=== PATIENT | male | born 1980 | race Caucasian/White ===

== ENCOUNTER 2018-02-11 01:46 | Emergency (ER) | payer BC ==
[~2018-02-11] VITALS: Ht 165.1 cm; Wt 68.0 kg
[2018-02-11] MEDS ORDERED: LOSARTAN POT25 MG PO (02:11)
[2018-02-11] MEDS ORDERED: ALBUTEROL0.63 MG/3 IN (02:13)
[2018-02-11 04:25] VITALS: BP 148/82
== END 2018-02-11 04:25 | disposition home or self-care (01) | DRG 305 ==
LOC: ED 01:46
DX: I10 Essential (primary) hypertension (principal); J44.9 Chronic obstructive pulmonary disease, unspecified; K21.9 Gastro-esophageal reflux disease without esophagitis; F17.210 Nicotine dependence, cigarettes, uncomplicated

== ENCOUNTER 2019-02-06 13:56 | Emergency (ER) | payer BC ==
[~2019-02-06] VITALS: Ht 165.1 cm; Wt 75.0 kg
[~2019-02-06 13:56] MED LIST: ALBUTEROL0.63 MG/3 IN; LOSARTAN POT25 MG PO
[2019-02-06 15:01] LABS: HEMATOCRIT 40.2 % (39.0-50.0); HEMOGLOBIN 14.1 g/dl (14.0-18.0); IMMATURE GRANULOCYTES 0.5 % (0.0-5.0); MEAN CELL VOLUME 99.5 fL CALC (80.0-100.0); MEAN CORPUSCULAR HGB 34.9 pG CALC (26.0-32.0); MEAN CORPUSCULAR HGB CONC 35.1 g/L CALC (32.0-36.0); NEUT# 6.78 thou/uL (1.82-7.42); RED BLOOD COUNT 4.04 mill/uL (4.70-6.10)
[2019-02-06 15:05] LABS: URINE BILIRUBIN - DIPSTICK NEGATIVE (NEGATIVE); URINE BLOOD DIPSTICK NEGATIVE (NEGATIVE); URINE COLOR YELLOW; URINE GLUCOSE - DIPSTICK NEGATIVE (NEGATIVE); URINE KETONE NEGATIVE (NEGATIVE); URINE LEUK ESTERASE NEGATIVE (NEGATIVE); URINE NITRITE - DIPSTICK NEGATIVE (Negative); URINE PH 6.5 (4.5-8.0); URINE PROTEIN - DIPSTICK NEGATIVE (NEG-TRACE); URINE SPECIFIC GRAVITY <=1.005; URINE UROBILINOGEN - DIPSTICK 0.2 E.U./dL (0.2)
[2019-02-06 15:14] LABS: ALKALINE PHOSPHATASE 88 u/l (38-126); ANION GAP 17 (6-22 (CALC)); BILIRUBIN, TOTAL 0.9 mg/dL (0.0-1.4); BUN 17 mg/dL (9-20); BUN/CREATININE RATIO 23 (12-20 (CALC)); CARBON DIOXIDE 28 mmol/l (22-30); CHLORIDE 101 mmol/l (95-108); CREATININE 0.8 mg/dL (0.7-1.3); GFR > 60 ML/MIN (>=60 (CALC)); GFR FOR AFR.AMER. > 60 ML/MIN (>=60 (CALC)); LIPASE 201 u/l (23-300); POTASSIUM 3.6 mmol/l (3.5-5.1); SGOT/AST 36 u/l (17-59); SODIUM 142 mmol/l (137-146); TOTAL PROTEIN 7.9 g/dL (6.3-8.2)
[2019-02-06 15:36] VITALS: BP 146/79
== END 2019-02-06 15:46 | disposition home or self-care (01) | DRG 392 ==
LOC: ED 13:56
PROVIDERS: Family Medicine
DX: K52.9 Noninfective gastroenteritis and colitis, unspecified (principal); I10 Essential (primary) hypertension; J44.9 Chronic obstructive pulmonary disease, unspecified; K21.9 Gastro-esophageal reflux disease without esophagitis; F17.210 Nicotine dependence, cigarettes, uncomplicated; Z87.11 Personal history of peptic ulcer disease

== ENCOUNTER 2019-07-21 07:42 | Inpatient (IN) | payer OTHER ==
[~2019-07-21] VITALS: Ht 165.1 cm; Wt 61.0 kg
--- NOTE | 2019-07-21 08:01 | NUR ---
PATIENT AMBULATED TO ROOM WITH STEADY GAIT AND PHYSICIAN AT BEDSIDE FOR EVAL
--- NOTE | 2019-07-21 08:13 | NUR ---
PT BP 207/98 PT MEDICATED WITH LABETOLOL PER ORDERED. PT AWARE OF PLAN OF CARE AND WAIT TIME.
[2019-07-21 08:20] LABS: IMMATURE GRANULOCYTES 0.3 % (0.0-5.0); MEAN CELL VOLUME 97.3 fL CALC (80.0-100.0); MEAN CORPUSCULAR HGB 33.7 pG CALC (26.0-32.0); MEAN CORPUSCULAR HGB CONC 34.7 g/L CALC (32.0-36.0); NEUT# 8.25 thou/uL (1.82-7.42); RED BLOOD COUNT 4.86 mill/uL (4.70-6.10); RED CELL DISTRI WIDTH 11.6 % (11.5-15.5)
[2019-07-21 08:31] LABS: HEMATOCRIT 47.3 % (39.0-50.0); HEMOGLOBIN 16.4 g/dl (14.0-18.0)
[2019-07-21 08:37] LABS: ALKALINE PHOSPHATASE 92 u/l (38-126); BILIRUBIN, TOTAL 1.2 mg/dL (0.0-1.4); BUN 17 mg/dL (9-20); BUN/CREATININE RATIO 25 (12-20 (CALC)); CHLORIDE 98 mmol/l (95-108); CREATININE 0.7 mg/dL (0.7-1.3); GFR > 60 ML/MIN (>=60 (CALC)); GFR FOR AFR.AMER. > 60 ML/MIN (>=60 (CALC)); SGOT/AST 49 u/l (17-59); SODIUM 136 mmol/l (137-146); TOTAL PROTEIN 8.4 g/dL (6.3-8.2)
[2019-07-21 08:38] LABS: ANION GAP 29 (6-22 (CALC)); CARBON DIOXIDE 14 mmol/l (22-30); POTASSIUM 4.6 mmol/l (3.5-5.1)
[2019-07-21 08:49] LABS: MYOGLOBIN 28 ng/mL (0 - 121)
--- NOTE | 2019-07-21 09:02 | NUR ---
RESTING COMFORTABLY ON BED WITH CONTINUOUS IVF BOLUS. TOLERATING WELL. UPDATED ON NEED FOR URINE FOR TESTING. PT ACKNOWLEDGES. VSS.
--- NOTE | 2019-07-21 09:18 | NUR ---
PT RESTING IN STRETCHER IN NAD. SPO2 99% ON ROOM AIR. IV FLUIDS INFUSING WITH NO DIFFICULTY, SITE FREE FROM REDNESS/EDEMA. PT AWARE OF PENDING RESULTS AND WAIT TIME. CALL MARTIN WITHIN REACH.
[2019-07-21 09:44] LABS: URINE BILIRUBIN - DIPSTICK SMALL (NEGATIVE); URINE BLOOD DIPSTICK SMALL (NEGATIVE); URINE COLOR YELLOW; URINE GLUCOSE - DIPSTICK NEGATIVE (NEGATIVE); URINE KETONE >=80 mg/dL (NEGATIVE); URINE LEUK ESTERASE NEGATIVE (NEGATIVE); URINE NITRITE - DIPSTICK NEGATIVE (Negative); URINE PROTEIN - DIPSTICK 100 mg/dL (NEG-TRACE); URINE SPECIFIC GRAVITY >=1.030
[2019-07-21 09:45] LABS: BARBITURATES NEGATIVE (NEGATIVE); COCAINE NEGATIVE (NEGATIVE); METHADONE NEGATIVE (NEGATIVE); OXCYCODONE NEGATIVE (NEGATIVE); TETRAHYDROCANNABIONOL NEGATIVE (NEGATIVE); TRICYLIC ANTIDEPRESSANTS NEGATIVE (NEGATIVE); URINE EPITHELIAL CELLS FEW EPI/hpf (0-FEW); URINE MUCUS MODERATE hpf (NONE-FEW); URINE RBC 0-2 RBC/hpf (0-5)
--- NOTE | 2019-07-21 10:00 | NUR ---
PT REPORTS PAIN TO MOUTH FOR SEVERAL DAYS WELL. MOUTH, LIPS AND GUMS RED AND IRRITATED.
[2019-07-21] MEDS ORDERED: CLONIDINE0.1 MG PO (10:25)
[2019-07-21] MEDS ORDERED: LIBRIUM25 M1 PO (10:26)
--- NOTE | 2019-07-21 10:30 | NUR ---
PT RESTING IN STRETCHER IN NAD, RR 20. SPO2 99% ON ROOM AIR AT THIS TIME. PT AWARE OF PLAN OF CARE AND WAIT TIME. CALL MARTIN WITHIN REACH.
--- NOTE | 2019-07-21 11:00 | NUR ---
MD AT BEDSIDE TO DISCUSS RESULTS AND PLAN FOR ADMISSION.
--- NOTE | 2019-07-21 12:00 | NUR ---
PT RESTING IN STRETCHER IN NAD. CALL MARTIN WITHIN REACH.
--- NOTE | 2019-07-21 12:59 | NUR ---
REPORT CALLED TO ICU
--- NOTE | 2019-07-21 13:24 | NUR ---
PT AWARE OF PLAN FOR ADMISSION AND WAIT TIME. PT NOSE RUNNING AND HAS A PRODUCTIVE COUGH.
--- NOTE | 2019-07-21 14:00 | NUR ---
Admission Note Report Given to: ICU Transported by: X Wheelchair Stretcher Transported with: X Nurse Transporter X Patent IV O2 Cad Design Engineer Location: X ICU MS2 PT TO ROOM 5 IN STABLE CONDITION.
[2019-07-21 14:04] VITALS: BP 161/92
--- NOTE | 2019-07-21 14:04 | NUR ---
male pt received to ICU bed 5 via wc accompanied by Alexandra Martel RN in stable condition (med surg tele overflow); ambulatory with steady gait; assessment completed at this time; pt alert and oriented; c/c of flu like symptoms starting Mon and sore throat starting yesterday; admits to throat pain; no n/v noted; resp even and unlabored; lungs clear; skin color wnl; ra; hr reg; strong pulses; no edema noted; sr on monitor; abd soft with bs present; no bm noted per sign writer letterer or painter; pt admits to voiding without difficulty; no urine to inspect at this time; urinal placed at bedside; #20 flushed and patent to lac; ivf/ abt to be initiated; plan of care/meds explained; oral cavity/ tongue noted very foul smelling; tongue coated with white substance; fall pre/ no smoking policy explained; pt denies need for librium; pt admits to drinking 1-3 drinks daily (beer or rum); call light within reach; will continue to monitor
--- NOTE | 2019-07-21 14:42 | NUR ---
VALERIA Flores called per quality analyst/technical writer; informed of thrush, htn; orders to be placed
--- NOTE | 2019-07-21 16:07 | NUR ---
awake in bed; offers no complaints; no apparent distress noted; iv intact and patent; no redness or edema noted at site; sr on monitor; call light within reach; will continue to monitor
[2019-07-21 16:30] VITALS: BP 178/86
--- NOTE | 2019-07-21 18:00 | NUR ---
awake in bed; visitors x2 present at bedside; no apparent distress noted iv patent; no redness or edema noted at site; sr on monitor; pt offers no complaints; call light within reach
[2019-07-21 18:15] VITALS: BP 166/81
[2019-07-21 19:30] VITALS: BP 159/93
--- NOTE | 2019-07-21 19:30 | NUR ---
awake. no resp diff. vehicle monitor technician shows sinus rhythm hr 77. #20 lac ns infusing @ 100cchr. refused po intake. voids per urinal. fall precautions cont.
--- NOTE | 2019-07-21 19:40 | NUR ---
lab here. blood drawn.
[2019-07-21 22:00] VITALS: BP 161/65
--- NOTE | 2019-07-22 00:01 | NUR ---
awake. watching tv. said "i am ready to go home." pt reassured.
[2019-07-22 02:25] VITALS: BP 171/85
--- NOTE | 2019-07-22 04:00 | NUR ---
lug breaker and wire puller shows sinus rhythm hr 76.
--- NOTE | 2019-07-22 04:19 | NUR ---
lab here. blood drawn.
[2019-07-22 05:27] LABS: MEAN CELL VOLUME 96.9 fL CALC (80.0-100.0); MEAN CORPUSCULAR HGB 34.2 pG CALC (26.0-32.0); MEAN CORPUSCULAR HGB CONC 35.3 g/L CALC (32.0-36.0); RED BLOOD COUNT 4.18 mill/uL (4.70-6.10); RED CELL DISTRI WIDTH 11.4 % (11.5-15.5)
[2019-07-22 05:32] LABS: HEMATOCRIT 40.5 % (39.0-50.0); HEMOGLOBIN 14.3 g/dl (14.0-18.0)
[2019-07-22 05:45] LABS: BUN 9 mg/dL (9-20); BUN/CREATININE RATIO 18 (12-20 (CALC)); CHLORIDE 97 mmol/l (95-108); CREATININE 0.5 mg/dL (0.7-1.3); GFR > 60 ML/MIN (>=60 (CALC)); GFR FOR AFR.AMER. > 60 ML/MIN (>=60 (CALC)); POTASSIUM 4.3 mmol/l (3.5-5.1); SODIUM 131 mmol/l (137-146)
[2019-07-22 05:46] LABS: ANION GAP 16 (6-22 (CALC)); CARBON DIOXIDE 22 mmol/l (22-30)
--- NOTE | 2019-07-22 06:40 | NUR ---
bp 184/98. hydralazine 10mg ivp given.
--- NOTE | 2019-07-22 07:00 | NUR ---
report called to Schuyler Bruce LPN; pt to be transferred to med surg room 279, TELE
--- NOTE | 2019-07-22 07:19 | NUR ---
pt arrived from icu via wc. with staff.
--- NOTE | 2019-07-22 07:47 | NUR ---
pt is pacing in the room wanting a cig.
[2019-07-22 07:50] VITALS: BP 171/85
--- NOTE | 2019-07-22 09:00 | NUR ---
ASSESSMENT IS COMPLETED: IV SITE IS FREE FROM REDNESS OR EDEMA. HR IS REG,PULSES ARE STRONG X4, ABD IS SOFT WITH ACTIVE BS. BREATH SOUNDS ARE CLEAR, BILATERALLY. NO C/O SOB. CONTINUE TO OBSERVE AND MONITOR.
[2019-07-22 11:20] VITALS: BP 175/84
--- NOTE | 2019-07-22 12:10 | NUR ---
PT IS RELAXING IN BED WITH NO DISTRESS NOTED.IV SITE IS FREE FROM REDNESS OR EDEMA. CONTINUE TO OBSERVE AND MONITOR.
--- NOTE | 2019-07-22 16:00 | NUR ---
pt is relaxing and walking in the room. iv site is free from redness or edema.
[2019-07-22 17:00] VITALS: BP 167/85
--- NOTE | 2019-07-22 19:00 | NUR ---
RECEIVED REPORT FROM DAY NURSE, PATIENT RESTING IN BED, WATCHING TV, EVEN UNLABORED BREATHING CALL LIGHT AT REACH.
[2019-07-22 19:42] VITALS: BP 160/81
--- NOTE | 2019-07-22 20:00 | NUR ---
PATIENT ALERT ORIENTED, ABLE TO MAKE NEEEDS KNONW, WITH AN ONGOING IV OF NS @ 125CC/HR INFUSING WELL ON LAC, REMAINS ON TELE SR 73, STILL HAVE SORETHROAT REFUSED PAIN MEDICATION, PAIN TOLERABLE, CALL LIGHT AT REACH.
[2019-07-22 23:00] VITALS: BP 157/88
[2019-07-23] VITALS (11 sets, daily range): BP systolic 136–194; BP diastolic 71–92
--- NOTE | 2019-07-23 | NUR ---
PATIERNT RESTING IN BED WITH EYES CLOSED, EVEN UNLABORED BREATHING CALL LIGHT AT REACH.
--- NOTE | 2019-07-23 05:00 | NUR ---
BP 194/91, PRN APRESOLINE GIVEN WILL RECHECKED.
--- NOTE | 2019-07-23 07:25 | NUR ---
REPORT RECEIVED FROM NELLI JOSHUA;PT APPEARS TO BE SLEEPING IN SEMI FOWLERS POSITION;NO S/S OF DISTRESS NOTED;RESPIRATIONS EVEN AND UNLABORED ON RA;TELE MONITORING IN PLACE;IV FLUIDS INFUSING WITH EASE PER ORDER;FALL PRECAUTIONS NOTED WITH CALL LIGHT IN REACH;WILL CONTINUE TO MONITOR
--- NOTE | 2019-07-23 08:30 | NUR ---
PT OOB RESTING IN RECLINER,A&O X3;VS OBTAINED AND ASSESSMENT COMPLETED,CURRENT MIRNA 184/87 HR 92 ALL MORNING MEDICATIONS ADMINISTERED AT THIS TIME;PT REPORTS MOUTH PAIN RATING 5/10 ON THE PAIN SCALE AND REQUESTS PAIN MEDICATION.PT TO BE MEDICATED WITH PRN TYLENOL 650MG PO;RESPIRATIONS EVEN AND UNLABORED ON RA;ABDOMEN SOFT ON PALPATION AND ACTIVE IN ALL 4 QUADRANTS;STRONG PEDAL PULSES;SKIN INTACT;TELE MONITORING IN PLACE;#20G TO LAC INFUSING NS @100ML/HR,SITE APPEARS HEALTHY;PY DENIES ANY ADDITIONAL NEEDS AND IS ENCOURAGED TO CALL FOR ASSISTANCE IF NEEDED;FALL PRECAUTIONS IN PLACE WITH CALL LIGHT IN REACH;WILL CONTINUE TO MONITOR
--- NOTE | 2019-07-23 10:12 | NUR ---
BP RE-CHECK 166/92
--- NOTE | 2019-07-23 12:40 | NUR ---
PT RESTING IN RECLINER;RESPIRATIONS EVEN AND UNLABORED ON RA;BP CURRENTLY 172/91 HR 84, PRN APRESOLINE 10MG IVP TO BE ADMINISTERED BY NELLI JACOME;IV FLUIDS INFUSING WITH EASE PER ORDER;TELE MONITORING IN PLACE;PRN LIBRIUM 25MG PO ADMINISTERED AT THIS TIME;PT DENIES ANY ADDITIONAL NEEDS AND IS ENCOURAGED TO CALL FOR ASSISTANCE IF NEEDED;CALL LIGHT IN REACH;WILL CONTINUE TO MONITOR
--- NOTE | 2019-07-23 13:30 | NUR ---
PT TRANSPORTED TO [facility] IN STABLE CONDITION VIA WHEELCHAIR ACCOMPANIED BY VOLUNTEER.
--- NOTE | 2019-07-23 14:43 | NUR ---
AT BEDSIDE DISCUSSING POC.
--- NOTE | 2019-07-23 16:15 | NUR ---
PT RESTING IN RECLINER;RESPIRATIONS EVEN AND UNLABORED ON RA;PT DENIES ANY CURRENT NEEDS AT THIS TIME;TELE MONITORING IN PLACE;IV FLUIDS INFUSING WITH EASE;ASSESSMENT REMAINS UNCHANGED;ENCOURAGED PT TO CALL FOR ASSISTANE IF NEEDED;CALL LIGHT IN REACH;WILL CONTINUE TO MONITOR
--- NOTE | 2019-07-23 19:00 | NUR ---
RECEIVED REPORT FROM NURSE HERNANDEZ PATIENT APPEARS TO BE SLEEPING WITH EYES CLOSED, EVEN UNLABORED BREATHING CALL LIGHT AT REACH.
--- NOTE | 2019-07-23 21:00 | NUR ---
PATIENT AWAKE AT THIS TIME, A/O ABLE TO MAKE NEEDS TANISHA ARTHUR AN ONGOING IV OF NS @ 100CC/HR INFUSING WELL ON LAC, REMAINS ON TELE SR 83, PAIN ON MOUTH SORE STATED 09/24 , WILL MEDICATE FOR PAIN.
[2019-07-24] VITALS (7 sets, daily range): BP systolic 137–176; BP diastolic 59–93
--- NOTE | 2019-07-24 | NUR ---
PATIENT RESTING IN BED, EYES CLOSED WITH EVEN UNLABORED BREATHING CALL LIGHT AT REACH.
--- NOTE | 2019-07-24 04:00 | NUR ---
PATIENT RESTING IN BED WITH EYES CLOSED WITH EVEN UNLABORED BREATHING CALL LIGHT AT REACH.
[2019-07-24 05:20] LABS: HEMATOCRIT 38.2 % (39.0-50.0); HEMOGLOBIN 13.5 g/dl (14.0-18.0); IMMATURE GRANULOCYTES 0.6 % (0.0-5.0); MEAN CELL VOLUME 96.5 fL CALC (80.0-100.0); MEAN CORPUSCULAR HGB 34.1 pG CALC (26.0-32.0); MEAN CORPUSCULAR HGB CONC 35.3 g/L CALC (32.0-36.0); NEUT# 2.52 thou/uL (1.82-7.42); RED BLOOD COUNT 3.96 mill/uL (4.70-6.10); RED CELL DISTRI WIDTH 11.4 % (11.5-15.5)
[2019-07-24 05:27] LABS: ALKALINE PHOSPHATASE 60 u/l (38-126); BILIRUBIN, TOTAL 0.9 mg/dL (0.0-1.4); SGOT/AST 28 u/l (17-59)
[2019-07-24 05:28] LABS: ALBUMIN 3.1 g/dL (3.2-5.0); TOTAL PROTEIN 5.7 g/dL (6.3-8.2)
[2019-07-24 05:31] LABS: ANION GAP 11 (6-22 (CALC)); BUN 5 mg/dL (9-20); BUN/CREATININE RATIO 10 (12-20 (CALC)); CARBON DIOXIDE 24 mmol/l (22-30); CHLORIDE 103 mmol/l (95-108); CREATININE 0.5 mg/dL (0.7-1.3); GFR > 60 ML/MIN (>=60 (CALC)); GFR FOR AFR.AMER. > 60 ML/MIN (>=60 (CALC)); MAGNESIUM 1.6 mg/dL (1.6-2.3); POTASSIUM 3.5 mmol/l (3.5-5.1); SODIUM 135 mmol/l (137-146)
--- NOTE | 2019-07-24 07:20 | NUR ---
REPORT RECEIVED FROM NELLI JOSHUA;PT RESTING IN SEMI FOWLERS POSITION;INTRODUCED SELF TO PT AND POC DISCUSSED;RESPIRATIONS EVEN AND UNLABORED ON RA;PT DENIES ANY CURRENT NEEDS;TELE MONITORING IN PLACE;IV FLUIDS INFUSING WITH EASE;ENCOURAGED TO CALL FOR ASSISTANCE IF NEEDED;FALL PRECAUTIONS IN PLACE WITH CALL LIGHT IN REACH;WILL CONTINUE TO MONITOR
--- NOTE | 2019-07-24 08:55 | NUR ---
PT RESTING IN RECLINER,A&O X3;VS OBTAINED AND ASSESSMENT COMPLETED;PT DENIES ANY CURRENT PAIN,PAIN SCALE AND REPORTING EDUCATED;RESPIRATIONS EVEN AND UNLABORED ON RA,CLEAR LUNG SOUNDS;ABDOMEN SOFT ON PALPATION AND ACTIVE IN ALL 4 QUADRANTS;STRONG PEDAL PULSES;SKIN INTACT;THRUSH NOTED TO MOUTH;#20G TO LAC INFUSING NS @ 100ML/HR,SITE APPEARS HEALTHY BUT DRESSING CHANGED AT THIS TIME;TELE MONITORING IN PLACE;PT DENIES ANY ADDITIONAL NEEDS AND IS ENCOURAGED TO CALL FOR ASSISTANCE IF NEEDED;CALL LIGHT IN REACH;WILL CONTINUE TO MONITOR
--- NOTE | 2019-07-24 11:37 | NUR ---
AT BEDSIDE DISCUSSING POC.
--- NOTE | 2019-07-24 12:20 | NUR ---
PT RESTING IN RECLINER;RESPIRATIONS EVEN AND UNLABORED ON RA;PT DENIES ANY CURRENT NEEDS;IV FLUIDS INFUSING WITH EASE;BP RE-CHECK 162/89 HR 84, PT TO BE MEDICATED WITH PRN APRESOLINE 10MG IVP BY NELLI BROWN;TELE MONITORING IN PLACE;PT DENIES ANY ADDITIONAL NEEDS AND IS ENCOURAGED TO CALL FOR ASSISTANCE IF NEEDED;CALL LIGHT IN REACH;WILL CONTINUE TO MONITOR
--- NOTE | 2019-07-24 13:00 | NUR ---
BP RE-CHECK 137/59 HR 86
--- NOTE | 2019-07-24 15:50 | NUR ---
PT OOB RESTING IN RECLINER;RESPIRATIONS EVEN AND UNLABORED ON RA;PT DENIES ANY CURRENT PAIN OR NEEDS;TELE MONITORING IN PLACE;IV FLUIDS CONTINUE AT 100ML/HR;PT DENIES ANY ADDITIONAL NEEDS AND IS ENCOURAGED TO CALL FOR ASSISTANCE IF NEEDED;CALL LIGHT IN REACH;WILL CONTINUE TO MONITOR
--- NOTE | 2019-07-24 20:11 | NUR ---
ASSESSMENT COMPLETD. IV SITE PATENT AND INFUSING ORDERED IBF WELL. DENIES NEEDS/PAIN. DECLINES LAXATIVE TO ASSIST WITH BM AND DOES HAVE ACTIVE BS. UPDATED ON POC. ENCOURAGED TO CALL FOR ANY NEEDS. INSTRUCTED TO USE URINAL FOR ALL VOIDS. CALL LIGHT IS IN REACH.
--- NOTE | 2019-07-24 21:27 | NUR ---
SCHED MEDS GIVEN ALONG WITH PRN RESTORIL PER ORDER AND REQUEST TO ASSIST WITH SLEEP. DENIES FURTHER NEEDS. CALL LIGHT IS IN REACH.
[2019-07-25] VITALS (8 sets, daily range): BP systolic 132–156; BP diastolic 74–94
--- NOTE | 2019-07-25 00:45 | NUR ---
RESTING IN BED WITH EYES CLOSED; AROUSES EASILY. NO DISTRESS NOTED. CALL LIGHT IS IN REACH. WILL CONTINUE TO MONITOR.
[2019-07-25 04:21] LABS: HEMATOCRIT 35.8 % (39.0-50.0); HEMOGLOBIN 12.6 g/dl (14.0-18.0); MEAN CELL VOLUME 97.3 fL CALC (80.0-100.0); MEAN CORPUSCULAR HGB 34.2 pG CALC (26.0-32.0); MEAN CORPUSCULAR HGB CONC 35.2 g/L CALC (32.0-36.0); RED BLOOD COUNT 3.68 mill/uL (4.70-6.10); RED CELL DISTRI WIDTH 11.4 % (11.5-15.5)
--- NOTE | 2019-07-25 04:25 | NUR ---
medicated with ordered prn apresoline for htn; will reassess. pt. denies needs/pain. call light is in reach.
[2019-07-25 04:51] LABS: ANION GAP 10 (6-22 (CALC)); BUN 7 mg/dL (9-20); BUN/CREATININE RATIO 13 (12-20 (CALC)); CARBON DIOXIDE 24 mmol/l (22-30); CHLORIDE 104 mmol/l (95-108); CREATININE 0.5 mg/dL (0.7-1.3); GFR > 60 ML/MIN (>=60 (CALC)); GFR FOR AFR.AMER. > 60 ML/MIN (>=60 (CALC)); MAGNESIUM 1.5 mg/dL (1.6-2.3); POTASSIUM 3.6 mmol/l (3.5-5.1); SODIUM 135 mmol/l (137-146)
--- NOTE | 2019-07-25 07:20 | NUR ---
REPORT RECEIVED FROM LORIRN;PT OOB RESTING IN RECLINER;INTRODUCED SELF TO PT AND POC DISCUSSED;RESPIRATIONS EVEN AND UNLABORED ON RA;PT DENIES ANY CURRENT PAIN OR NEEDS;TELE MONITORING IN PLACE;IV SITE PATENT INFUSING NS @ 100ML/HR;PT DENIES ANY CURRENT NEEDS AND IS ENCOURAGED TO CALL FOR ASSISTANCE IF NEEDED;CALL LIGHT IN REACH;WILL CONTINUE TO MONITOR
--- NOTE | 2019-07-25 09:25 | NUR ---
PT OOB RESTING IN RECLINER,A&O X3;VS OBTAINED AND ASSESSMENT COMPLETED;PT DENIES ANY CURRENT PAIN OR NEEDS,PAIN SCALE AND REPORTING EDUCATED;RESPIRATIONS EVEN AND UNLABORED ON RA,CLEAR LUNG SOUNDS;ABDOMEN SOFT ON PALPATION AND ACTIVE IN ALL 4 QUADRANTS;MOM OFFERED BUT PT REFUSES AT THIS TIME;STRONG PEDAL PULSES;SKIN INTACT;TELE MONITORING IN PLACE;#22G TO RAC INFUSING NS @ 100ML/HR,SITE APPEARS HEALTHY;NICOTINE PATCH APPLIED TO RIGHT ARM;PT DENIES ANY ADDITIONAL NEEDS AND IS ENCOURAGED TO CALL FOR ASSISTANCE IF NEEDED;CALL LIGHT IN REACH;WILL CONTINUE TO MONITOR
--- NOTE | 2019-07-25 12:15 | NUR ---
PT OOB RESTING IN RECLINER;RESPIRATIONS EVEN AND UNLABORED ON RA;PT DENIES ANY CURRENT PAIN OR NEEDS;TELE MONITORING IN PLACE;IV FLUIDS INFUSING WITH EASE PER ORDER;ASSESSMENT REMAINS UNCHANGED AT THIS TIME;ENCOURAGED TO CALL FOR ASSISTANCE IF NEEDED;CALL LIGHT IN REACH;WILL CONTINUE TO MONITOR
--- NOTE | 2019-07-25 12:45 | NUR ---
AT BEDSIDE DISCUSSING POC WITH PT.
--- NOTE | 2019-07-25 16:05 | NUR ---
PT OOB RESTING IN RECLINER;RESPIRATIONS REMAIN EVEN AND UNLABORED ON RA;PT DENIES ANY CURRENT PAIN OR NEEDS;TELE MONITORING IN PLACE;IV FLUIDS INFUSING WITH EASE PER ORDER;ASSESSMENT REMAINS UNCHANGED;ENCOURAGED TO CALL FOR ASSISTANCE IF NEEDED;CALL LIGHT IN REACH;WILL CONTINUE TO MONITOR
--- NOTE | 2019-07-25 20:56 | NUR ---
PT MEDICATED ORDERS PROVIDE AND ASSESSMENT COMPLETED. IV ANTIBIOITIC THERAPY RUNNING AT THIS TIME. PT DENIES ANY OTHER NEEDS. CALL LIGHT AT BEDSIDE AND PT ENCOURAGED TO CALL.
--- NOTE | 2019-07-26 02:45 | NUR ---
PT SLEEPING, AWOKE TO MY ENTERING ROOM. DENIES ANY NEEDS. NO S/O DISTRESS NOTED.
[2019-07-26 04:02] VITALS: BP 142/91
--- NOTE | 2019-07-26 05:03 | NUR ---
PT MEDICATED W/IV ANTIBIOTIC THERAPY. DENIES ANY OTHER NEEDS. LAB IS JUST LEAVING ROOM.
[2019-07-26 05:22] LABS: HEMATOCRIT 37.5 % (39.0-50.0); MEAN CELL VOLUME 97.4 fL CALC (80.0-100.0); MEAN CORPUSCULAR HGB 33.8 pG CALC (26.0-32.0); MEAN CORPUSCULAR HGB CONC 34.7 g/L CALC (32.0-36.0); RED BLOOD COUNT 3.85 mill/uL (4.70-6.10); RED CELL DISTRI WIDTH 11.6 % (11.5-15.5)
[2019-07-26 05:46] LABS: ANION GAP 10 (6-22 (CALC)); BUN 7 mg/dL (9-20); BUN/CREATININE RATIO 13 (12-20 (CALC)); CARBON DIOXIDE 26 mmol/l (22-30); CHLORIDE 105 mmol/l (95-108); CREATININE 0.5 mg/dL (0.7-1.3); GFR > 60 ML/MIN (>=60 (CALC)); GFR FOR AFR.AMER. > 60 ML/MIN (>=60 (CALC)); POTASSIUM 3.6 mmol/l (3.5-5.1); SODIUM 137 mmol/l (137-146)
[2019-07-26 08:00] VITALS: BP 158/93
[2019-07-26 11:00] VITALS: BP 138/87
[2019-07-26] MEDS ORDERED: HYZAAR1 TA1 PO (12:08)
[2019-07-26] MEDS ORDERED: ALBUTEROL108 MCG/AC PO (12:10)
[2019-07-26] MEDS ORDERED: LIDOCAINE21 PO (12:53)
[2019-07-26] MEDS ORDERED: ACYCLOVIR400 MG PO (12:53)
[2019-07-26] MEDS ORDERED: VALACYCLOVIR HCL1 GM PO (15:01)
== END 2019-07-26 15:30 | disposition home or self-care (01) | DRG 158 ==
LOC: ED 07:42 → ED-I 10:51 → ED 11:14 → ED-I 11:15 → MS2 11:15 → ICU 12:51 → MS2 07-22 07:42
PROVIDERS: Emergency Medicine; Internal Medicine Infectious Disease; Nurse Practitioner Family; ADMIT Internal Medicine; ATTEND Internal Medicine
DX: B00.2 Herpesviral gingivostomatitis and pharyngotonsillitis (principal); E87.2 Acidosis; E87.1 Hypo-osmolality and hyponatremia; F10.239 Alcohol dependence with withdrawal, unspecified; I10 Essential (primary) hypertension; H10.33 Unspecified acute conjunctivitis, bilateral; J44.9 Chronic obstructive pulmonary disease, unspecified; K21.9 Gastro-esophageal reflux disease without esophagitis; F17.210 Nicotine dependence, cigarettes, uncomplicated; F43.10 Post-traumatic stress disorder, unspecified; E55.9 Vitamin D deficiency, unspecified; T46.5X6A Underdosing of other antihypertensive drugs, initial encounter; Z91.128 Patient's intentional underdosing of medication regimen for other reason; Z87.11 Personal history of peptic ulcer disease
CPT/HCPCS: J0133; J1650; J3475

== ENCOUNTER 2020-09-12 20:41 | Emergency (ER) | payer OTHER ==
[~2020-09-12] VITALS: Ht 165.1 cm; Wt 65.0 kg
[~2020-09-12 20:41] MED LIST changes: +ACYCLOVIR400 MG PO; +ALBUTEROL108 MCG/AC PO; +CLONIDINE0.1 MG PO; +HYZAAR1 TA1 PO; +LIBRIUM25 M1 PO; +LIDOCAINE21 PO; +VALACYCLOVIR HCL1 GM PO
[2020-09-12 21:23] LABS: URINE BILIRUBIN - DIPSTICK NEGATIVE (NEGATIVE); URINE BLOOD DIPSTICK NEGATIVE (NEGATIVE); URINE COLOR YELLOW; URINE GLUCOSE - DIPSTICK >=1000 mg/dL (NEGATIVE); URINE KETONE NEGATIVE (NEGATIVE); URINE LEUK ESTERASE NEGATIVE (NEGATIVE); URINE NITRITE - DIPSTICK NEGATIVE (Negative); URINE PROTEIN - DIPSTICK 30 mg/dL (NEG-TRACE); URINE UROBILINOGEN - DIPSTICK 0.2 E.U./dL (0.2)
[2020-09-12 21:34] LABS: ALKALINE PHOSPHATASE 82 u/l (38-126); ANION GAP 18 (6-22 (CALC)); BILIRUBIN, TOTAL 0.7 mg/dL (0.0-1.4); BUN 14 mg/dL (9-20); BUN/CREATININE RATIO 17 (12-20 (CALC)); CARBON DIOXIDE 23 mmol/l (22-30); CHLORIDE 96 mmol/l (95-108); CREATININE 0.8 mg/dL (0.7-1.3); GFR > 60 ML/MIN (>=60 (CALC)); GFR FOR AFR.AMER. > 60 ML/MIN (>=60 (CALC)); POTASSIUM 3.7 mmol/l (3.5-5.1); SGOT/AST 40 u/l (17-59); SODIUM 134 mmol/l (137-146)
[2020-09-12 21:35] LABS: MAGNESIUM 1.4 mg/dL (1.6-2.3); TOTAL PROTEIN 7.7 g/dL (6.3-8.2)
[2020-09-12 21:36] LABS: IMMATURE GRANULOCYTES 0.5 % (0.0-5.0); MEAN CELL VOLUME 96.2 fL CALC (80.0-100.0); MEAN CORPUSCULAR HGB 33.6 pG CALC (26.0-32.0); MEAN CORPUSCULAR HGB CONC 34.9 g/dL CAL (32.0-36.0); NEUT# 9.97 thou/uL (1.82-7.42); RED BLOOD COUNT 4.53 mill/uL (4.70-6.10); RED CELL DISTRI WIDTH 11.6 % (11.5-15.5)
[2020-09-12 21:37] LABS: HEMOGLOBIN 15.2 g/dl (14.0-18.0)
[2020-09-12 21:38] LABS: HEMATOCRIT 43.6 % (39.0-50.0)
[2020-09-12 21:40] LABS: INTERNATIONAL NORMALIZED RATIO 0.9 RATIO (0.7-1.3); PROTHROMBIN TIME 9.6 SECONDS (9.0-12.5)
[2020-09-12 21:46] LABS: MYOGLOBIN 33 ng/mL (0 - 121)
[2020-09-12 22:05] LABS: TSH, 3RD GENERATION 0.65 uIU/mL (0.47 - 4.68)
[2020-09-12] MEDS ORDERED: LOSARTAN POTASS50 MG PO (22:39)
[2020-09-12] MEDS ORDERED: TOPROL XL25 MG PO (22:39)
[2020-09-12] MEDS ORDERED: MECLIZINE25 MG PO (22:39)
[2020-09-12 22:55] VITALS: BP 150/79
== END 2020-09-12 22:55 | disposition home or self-care (01) | DRG 305 ==
LOC: ED 20:41
PROVIDERS: Family Medicine
DX: I10 Essential (primary) hypertension (principal); R42 Dizziness and giddiness; R73.9 Hyperglycemia, unspecified; J44.9 Chronic obstructive pulmonary disease, unspecified; K21.9 Gastro-esophageal reflux disease without esophagitis; F17.200 Nicotine dependence, unspecified, uncomplicated; T46.5X6A Underdosing of other antihypertensive drugs, initial encounter; Z91.128 Patient's intentional underdosing of medication regimen for other reason; Z87.11 Personal history of peptic ulcer disease

== ENCOUNTER 2020-11-11 10:48 | Observation (INO) | payer OTHER ==
[~2020-11-11 10:48] MED LIST changes: +LOSARTAN POTASS50 MG PO; +MECLIZINE25 MG PO; +TOPROL XL25 MG PO
--- NOTE | 2020-11-11 11:47 | NUR ---
PT AMBULATED TO ROOM # 3 WITH STEADY GAIT
[2020-11-11] MEDS ORDERED: LISINOPRIL10 MG PO (12:08)
--- NOTE | 2020-11-11 12:20 | NUR ---
Reassessment of patient completed. No distress noted. CALL MARTIN WITHIN REACH. DENIES ANY NEEDS AT THIS TIME
[2020-11-11 12:31] LABS: HEMATOCRIT 43.7 % (39.0-50.0); HEMOGLOBIN 14.9 g/dl (14.0-18.0); IMMATURE GRANULOCYTES 0.5 % (0.0-5.0); MEAN CORPUSCULAR HGB 34.1 pG CALC (26.0-32.0); MEAN CORPUSCULAR HGB CONC 34.1 g/dL CAL (32.0-36.0); NEUT# 8.85 thou/uL (1.82-7.42); RED BLOOD COUNT 4.37 mill/uL (4.70-6.10); RED CELL DISTRI WIDTH 12.6 % (11.5-15.5)
[2020-11-11] MEDS ORDERED: LOSARTAN POTASS25 MG PO (12:42)
[2020-11-11] MEDS ORDERED: LOPRESSOR25 M1 PO (12:42)
--- NOTE | 2020-11-11 12:46 | NUR ---
PATEINT RESTING AWAITNG LAB RESULTS AT THIS TIME.
[2020-11-11 12:50] LABS: ALBUMIN 5.9 g/dL (3.2-5.0); ALKALINE PHOSPHATASE 122 u/l (38-126); BUN 23 mg/dL (9-20); BUN/CREATININE RATIO 26 (12-20 (CALC)); CHLORIDE 86 mmol/l (95-108); CREATININE 0.9 mg/dL (0.7-1.3); GFR > 60 ML/MIN (>=60 (CALC)); GFR FOR AFR.AMER. > 60 ML/MIN (>=60 (CALC)); LIPASE 1676 u/l (23-300); SODIUM 129 mmol/l (137-146); TOTAL PROTEIN 9.2 g/dL (6.3-8.2)
[2020-11-11 12:51] LABS: ANION GAP 20 (6-22 (CALC)); BILIRUBIN, TOTAL 1.8 mg/dL (0.0-1.4); CARBON DIOXIDE 28 mmol/l (22-30); POTASSIUM 4.8 mmol/l (3.5-5.1); SGOT/AST 277 u/l (17-59)
--- NOTE | 2020-11-11 13:04 | NUR ---
PT AMBULATED TO BATHROOM WITH STEADY GAIT. NO VOMITING SINCE ARRIVAL IN ER
--- NOTE | 2020-11-11 13:42 | NUR ---
ALERT ORIENTED WARM BLANKET APPLIED
--- NOTE | 2020-11-11 14:19 | NUR ---
PATIENT RESTING QUIETLY,CALL MARTIN IN REACH. NO DISTRESS AT THIS TIME.
--- NOTE | 2020-11-11 15:00 | NUR ---
DR OLVERA AT BEDSIDE DISCUSSING POC
--- NOTE | 2020-11-11 16:13 | NUR ---
patient resting quietly. Awaiting admission.
--- NOTE | 2020-11-11 16:42 | NUR ---
report called to MARIELA reiciving nurse on med surg.
--- NOTE | 2020-11-11 16:50 | NUR ---
PT ARRIVED VIA WC IN STABLE CONDITION TO MED SURG FLOOR ACCOMPANIED BY ED NURSE ERIN;PT AMBULATED TO BED WITH NO ASSISTANCE NEEDED;ARM BANDS PLACED ON PT;VS AND ASSESSMENT COMPLETED;PT ORIENTED TO ROOM AND CALL MARTIN SYSTEM;HOME MEDICATIONS OBTAINED FROM PT TO BE SENT TO PHARMACY;INVENTORY TAKEN OF PT BELONGINGS;NPO SIGN PLACED ON DOOR;HEART SOUNDS ARE REGULAR IN RATE AND RHYTHM;LUNG SOUNDS ARE CLEAR;RESPIRATIONS ARE EVEN AND UNLABORED ON RA;#20G IV IN RAC IS RUNNING NS@150ML/HR;IV SITE IS FREE OF COMPLICATIONS AT THIS TIME;SAFETY PRECAUTIONS IN PLACE;CALL LIGHT WITHIN REACH;WILL CONTINUE TO MONITOR.
--- NOTE | 2020-11-11 16:51 | NUR ---
transferred via wc to room 267. stable upon arrival, iv intact
[2020-11-11 17:26] VITALS: BP 151/66
[2020-11-11 19:00] VITALS: BP 142/83
--- NOTE | 2020-11-11 19:00 | NUR ---
REPORT RECEIVED FROM Paty VALERIO RN, CARE OF PT ASSUMED AT THIS TIME.
--- NOTE | 2020-11-11 20:05 | NUR ---
PT LAYING SEMIFOWLERS IN BED. PHYSICAL ASSESMENT COMPLETE. PT DENIES ABD PAIN OR N/V, DENIES DIARHEA OR CONSTIPATION. LAST REPORTED BM 11/11/20. PT REPORT HE FEELS READY TO ADVANCE TO ORAL INTAKE. PT PROVIDED WITH ICE CHIPS TO ASSESS IF HE CAN TOLERATE THEM. PRN LIBRIUM ADMINISTERED PER PT'S REQUEST, SEE E-MAR. CIWA SCORE OF 2 FOR MILD ANXIETY AND MILD VISUAL SENSITIVITY TO LIGHT. REPORTS LAST ETOH INTAKE 11/08/20. PT APPEARS CALM AND COOPERATIVE. PLAN OF CARE REVIEW, PT APPEARS ENGAGED. DENIES QUESTIONS AND VERBALIZES UNDERSTANDING. R-AC 20G IV PATENT AND INFUSING NS @ 150ML/H. PT DENIES NEEDS AT THIS TIME. CALL MARTIN WITHIN REACH, AGREES TO CALL PRN.
--- NOTE | 2020-11-11 21:00 | NUR ---
PT TOLERATING SIPS OF H2O AND ICE CHIPS W/O N/V OR PAIN. WILL ENDORSE TO AM NURSE AND SUGGEST DIET BE ADVANCED BY PROVIDER.
--- NOTE | 2020-11-12 00:05 | NUR ---
PT APPEARS TO BE SLEEPING COMFORTABLY, LAYING IN BED WITH EYES CLOSED, RESPIRATIONS REGULAR AND UNLABORED. NO APPARENT DISTRESS. CALL MARTIN REMAINS WITHIN REACH.
[2020-11-12 04:00] VITALS: BP 150/89
--- NOTE | 2020-11-12 04:00 | NUR ---
PT REPORTS TO BE USING CHEWING TOBACCO, ADVISED PT THIS IS UNSAFE WITH NICOTINE PATCH ON AND HE SHOULD NOT BE CONSUMING MULTIPLE NICOTINE PRODUCTS. PT VERBALIZES UNDERSTANDING.
[2020-11-12 05:54] LABS: ALKALINE PHOSPHATASE 80 u/l (38-126); BILIRUBIN, TOTAL 1.2 mg/dL (0.0-1.4); BUN 20 mg/dL (9-20); BUN/CREATININE RATIO 26 (12-20 (CALC)); CHLORIDE 94 mmol/l (95-108); CREATININE 0.8 mg/dL (0.7-1.3); GFR > 60 ML/MIN (>=60 (CALC)); GFR FOR AFR.AMER. > 60 ML/MIN (>=60 (CALC)); LIPASE 1184 u/l (23-300); SGOT/AST 157 u/l (17-59); SODIUM 129 mmol/l (137-146)
[2020-11-12 05:57] LABS: POTASSIUM 4.1 mmol/l (3.5-5.1)
[2020-11-12 05:58] LABS: IMMATURE GRANULOCYTES 0.4 % (0.0-5.0); MEAN CELL VOLUME 100.6 fL CALC (80.0-100.0); MEAN CORPUSCULAR HGB 33.8 pG CALC (26.0-32.0); MEAN CORPUSCULAR HGB CONC 33.6 g/dL CAL (32.0-36.0); NEUT# 4.39 thou/uL (1.82-7.42); RED BLOOD COUNT 3.52 mill/uL (4.70-6.10); RED CELL DISTRI WIDTH 12.6 % (11.5-15.5)
[2020-11-12 06:04] LABS: ALBUMIN 4.2 g/dL (3.2-5.0); ANION GAP 17 (6-22 (CALC)); CARBON DIOXIDE 22 mmol/l (22-30); TOTAL PROTEIN 6.6 g/dL (6.3-8.2)
--- NOTE | 2020-11-12 06:19 | NUR ---
PT REPORTS HE FEELS READY TO ADVANCE TO PO INTAKE AND READY TO BE DISCHARGED, WILL INFORM ONCOMING SHIFT. PT ENCOURAGED TO VERBALIZE REQUESTS TO PROVIDER THIS AM.
[2020-11-12 06:30] LABS: HEMATOCRIT 35.4 % (39.0-50.0); HEMOGLOBIN 11.9 g/dl (14.0-18.0)
[2020-11-12 07:15] VITALS: BP 146/86
--- NOTE | 2020-11-12 07:48 | NUR ---
UPON GOING INTO ROOM TO ASSESS PATIENT PATIENT STATED THAT HE WANTED TO SIGN OUT AMA AT THIS TIME. PATIENT STATED HE HAS A LOT OF PERSONAL THINGS TO DO AT HOME AND NEEDS TO LEAVE NOW. PATIENT STATED "I'M GOING TO CONTINUE DRINKING WHEN I WANT BECAUSE I LIKE IT, JESSICA MARTINS APRN NOTIFIED A THIS TIME PATINET GIVEN EDUCATION ON ALCOHOL ABUSE AND EXPLAINED RISK AND BENEFITS OF LEAVING.
== END 2020-11-12 07:55 | disposition left against medical advice (07) | DRG 439 ==
LOC: ED 10:48 → ED-I 14:53 → ED 15:05 → MS2 15:06
PROVIDERS: Family Medicine; Nurse Practitioner; ADMIT Internal Medicine; ATTEND Internal Medicine
DX: K85.20 Alcohol induced acute pancreatitis without necrosis or infection (principal); E87.1 Hypo-osmolality and hyponatremia; R74.8 Abnormal levels of other serum enzymes; F10.10 Alcohol abuse, uncomplicated; I10 Essential (primary) hypertension; J44.9 Chronic obstructive pulmonary disease, unspecified; K21.9 Gastro-esophageal reflux disease without esophagitis; F17.200 Nicotine dependence, unspecified, uncomplicated; Z87.11 Personal history of peptic ulcer disease; Z20.822 Contact with and (suspected) exposure to COVID-19
CPT/HCPCS: G0378; Q9967

== ENCOUNTER 2020-12-08 13:35 | Inpatient (IN) | payer OTHER ==
[~2020-12-08] VITALS: Ht 165.1 cm; Wt 71.0 kg
[~2020-12-08 13:35] MED LIST changes: +LISINOPRIL10 MG PO; +LOPRESSOR25 M1 PO; +LOSARTAN POTASS25 MG PO
--- NOTE | 2020-12-08 14:13 | NUR ---
PT TO ER 15 VIA WHEELCHAIR FOR BEDSIDE TRIAGE. ASSISTED INTO BED WITH ONE PERSON ASSIST.
[2020-12-08 15:14] LABS: IMMATURE GRANULOCYTES 0.8 % (0.0-5.0); MEAN CELL VOLUME 102.6 fL CALC (80.0-100.0); MEAN CORPUSCULAR HGB 35.2 pG CALC (26.0-32.0); MEAN CORPUSCULAR HGB CONC 34.3 g/dL CAL (32.0-36.0); NEUT# 7.15 thou/uL (1.82-7.42); RED BLOOD COUNT 3.41 mill/uL (4.70-6.10)
[2020-12-08 15:27] LABS: ALKALINE PHOSPHATASE 120 u/l (38-126); BUN 18 mg/dL (9-20); BUN/CREATININE RATIO 22 (12-20 (CALC)); CHLORIDE 83 mmol/l (95-108); CREATININE 0.8 mg/dL (0.7-1.3); GFR > 60 ML/MIN (>=60 (CALC)); GFR FOR AFR.AMER. > 60 ML/MIN (>=60 (CALC)); POTASSIUM 4.7 mmol/l (3.5-5.1); SODIUM 127 mmol/l (137-146)
[2020-12-08 15:33] LABS: ALBUMIN 5.7 g/dL (3.2-5.0); ANION GAP 35 (6-22 (CALC)); BILIRUBIN, TOTAL 2.1 mg/dL (0.0-1.4); CARBON DIOXIDE 14 mmol/l (22-30); SGOT/AST 362 u/l (17-59); TOTAL PROTEIN 9.3 g/dL (6.3-8.2)
[2020-12-08 17:33] LABS: URINE BLOOD DIPSTICK LARGE (NEGATIVE); URINE GLUCOSE - DIPSTICK NEGATIVE (NEGATIVE); URINE KETONE >=80 mg/dL (NEGATIVE); URINE LEUK ESTERASE NEGATIVE (Negative); URINE NITRITE - DIPSTICK NEGATIVE (Negative); URINE PROTEIN - DIPSTICK >=300 mg/dL (NEG-TRACE); URINE SPECIFIC GRAVITY >=1.030; URINE UROBILINOGEN - DIPSTICK 0.2 E.U./dL (0.2)
[2020-12-08 17:37] LABS: URINE BILIRUBIN - DIPSTICK NEGATIVE (NEGATIVE); URINE CLARITY HAZY; URINE COLOR AMBER
[2020-12-08 17:44] LABS: URINE WBC 0-2 WBC/hpf (0-5)
[2020-12-08 17:53] LABS: CPK 261 u/l (52-200)
[2020-12-08 18:03] LABS: MYOGLOBIN 82 ng/mL (0 - 121)
--- NOTE | 2020-12-08 19:03 | NUR ---
REPORT TO VANDANA AIKEN
--- NOTE | 2020-12-08 19:04 | NUR ---
REPORT TO VANDANA AIKEN
--- NOTE | 2020-12-08 19:15 | NUR ---
ICU 7 ASSIGNED TO PT AT THIS TIME TO Yusef JOYCE IN ED.
--- NOTE | 2020-12-08 20:10 | NUR ---
TELEPHONE REPORT RECEIVED FROM Vernon BAR RN, ICU#7 PREPARED FOR PT BY Charly WANG CNA.
--- NOTE | 2020-12-08 20:13 | NUR ---
REPORT GIVEN TO NELLI PATRICIA IN ICU
[2020-12-08 20:33] VITALS: BP 175/76
--- NOTE | 2020-12-08 20:33 | NUR ---
PT ARRIVES TO UNIT AT 2032 VIA STRETCHER ACCOMPANIED BY Vernon BAR RN, PT ABLE TO SLIDE SELF FROM STRETCHER TO BED. ATTATCHED TO MONITOR. ORIENTED TO UNIT AND ROOM. PLAN OF CARE REVIEWED, PT VERBALIZES UNDERSTANDING. CALL MARTIN WITHIN REACH, AGREES TO CALL PRN.
--- NOTE | 2020-12-08 20:45 | NUR ---
ADMISSION AND ASSESMENT COMPLETED. PT IS A/O X3, WHEN ASKED DATE GETS MONTH CORRECT BUT STATES IT IS THE 2ND. LEFT PERIORBITAL ECCHYMOSIS AND LEFT EYE SWOLLEN SHUT. DENIES PAIN. AFFECT IS FLAT. REPORTS NO ETOH X3 DAYS. REPORTS PRIOR HE DRANK "A HANDLE OF LIQUOR" A DAY FOR SEVERAL MONTHS, STATES HE WALKED OUT OF WORK "WASTED" SIX WEEKS AGO AND "IT'S PRETTY MUCH BEEN A BAL EVER SINCE", WHEN ASKED WHY HE STOPPED CONSUMING ETOH THREE DAYS AGO STATES "BECAUSE ITS JUST TAKING OVER MY LIFE". PT ADMITS TO FEELING DEPRESSED, DENIES THOUGHT OR PLANS OF SELF HARM. PRIOR TO MEDICAL INTERVENTION IN ED, REPORTS N/V, TREMORS, PAROXYSMAL SWEATS AND ANXIETY. CIWA SCORE OF 8 AT TIME OF ASSESMENT, REPORTS DATE IS November AND REPORTS SEEING A "WOMAN IN WHITE" STANDING IN ROOM WITH HIM. PT REPORTS HE HAS BEEN UNABLE TO EAT FOR 3-4 DAYS AND HAS NOT HAD BM FOR 3-4 DAYS. FOOD PROVIDED PER PT'S REQUEST. PT TOLERATES FOOD PROVIDED. L-AC #20G PATENT AND INFUSING 0.9% NACL @ 100ML/H. PLAN OF CARE REVIEWED, PT VERBALIZES UNDERSTANDING. DENIES FURTHER NEEDS AT THIS TIME. CALL MARTIN WITHIN REACH AGREES TO CALL PRN.
[2020-12-08 21:00] VITALS: BP 153/83
--- NOTE | 2020-12-08 21:01 | NUR ---
SCHEDULED MEDICATION ADMINISTERED, SEE EMAR.
[2020-12-08 22:00] VITALS: BP 148/83
[2020-12-08 23:00] VITALS: BP 157/89
--- NOTE | 2020-12-08 23:45 | NUR ---
PRN HYDRALZINE ADMINISTERED FOR NIBP 157/89mmHg, PRN ATIVAN ADMINISITERED FOR CIWA SCORE 0F 8. SEE E-MAR.
[2020-12-09] VITALS (22 sets, daily range): BP systolic 136–165; BP diastolic 67–92
--- NOTE | 2020-12-09 02:00 | NUR ---
PT APPEARS TO BE SLEEPING COMFORTABLY, EYES CLOSED, SNORING, RESPIRATIONS UNLABORED, NO APPARENT DISTRESS. CALL MARTIN REMAINS WITHIN REACH.
--- NOTE | 2020-12-09 04:00 | NUR ---
PT APPEARS TO BE SLEEPING COMFORTABLY, EYES CLOSED, SNORING, RESPIRATIONS UNLABORED, NO APPARENT DISTRESS. CALL MARTIN REMAINS WITHIN REACH.
--- NOTE | 2020-12-09 05:41 | NUR ---
LABS COLLECTED VIA VENIPUNCTURE X1 ATTMEPT.
[2020-12-09 07:04] LABS: IMMATURE GRANULOCYTES 0.4 % (0.0-5.0); MEAN CELL VOLUME 99.6 fL CALC (80.0-100.0); MEAN CORPUSCULAR HGB 35.4 pG CALC (26.0-32.0); MEAN CORPUSCULAR HGB CONC 35.5 g/dL CAL (32.0-36.0); NEUT# 2.89 thou/uL (1.82-7.42); RED BLOOD COUNT 2.74 mill/uL (4.70-6.10); RED CELL DISTRI WIDTH 12.9 % (11.5-15.5)
[2020-12-09 07:05] LABS: HEMATOCRIT 27.3 % (39.0-50.0); HEMOGLOBIN 9.7 g/dl (14.0-18.0)
--- NOTE | 2020-12-09 07:22 | NUR ---
RECIEVED PATIENT FROM NIGHT NURSE
[2020-12-09 07:32] LABS: ALKALINE PHOSPHATASE 83 u/l (38-126); BUN 11 mg/dL (9-20); BUN/CREATININE RATIO 18 (12-20 (CALC)); CREATININE 0.6 mg/dL (0.7-1.3); GFR > 60 ML/MIN (>=60 (CALC)); GFR FOR AFR.AMER. > 60 ML/MIN (>=60 (CALC)); POTASSIUM 3.8 mmol/l (3.5-5.1); SGOT/AST 179 u/l (17-59); SODIUM 128 mmol/l (137-146)
[2020-12-09 07:34] LABS: ANION GAP 14 (6-22 (CALC)); CARBON DIOXIDE 24 mmol/l (22-30); CHLORIDE 94 mmol/l (95-108); TOTAL PROTEIN 6.4 g/dL (6.3-8.2)
--- NOTE | 2020-12-09 08:00 | NUR ---
PATIENT WOKE UP ALLOWED ME TO ASSES HIM, TOLD HIM HIS MEAL TRAY WILL BE COMING UP SOON. PATIENT WENT BACK TO SLEEP.
--- NOTE | 2020-12-09 10:00 | NUR ---
PATIENT WATCHING TV
--- NOTE | 2020-12-09 12:00 | NUR ---
PATIENT RESTING IN BED.
--- NOTE | 2020-12-09 14:00 | NUR ---
PATIENT WASHING HIMSELF UP.
--- NOTE | 2020-12-09 16:00 | NUR ---
PATIENT RESTING IN BED
--- NOTE | 2020-12-09 18:00 | NUR ---
PATIENT IS SITTING UP IN BED WATCHING TV. DINNER TRAY INFRONT OF HIM
--- NOTE | 2020-12-09 18:32 | NUR ---
PATIENT COMPLAINED OF NAUSEA, DR. MCCULLOUGH GAVE NEW ORDERS FROM [facility] SAXENA. ORDER IS FAXED TO [facility].
--- NOTE | 2020-12-09 19:00 | NUR ---
RECEIVED REPORT. PT AWAKE. ALERT. ATE VERY LITTLE DINNER BUT DRANK FLUIDS. BANANA BAG INFUSING RX IN RIGHT A/C (IV). C/O NAUSEA AND OF BEING BORED. DENIES JITTERY OR NERVOUS FEELINGS
--- NOTE | 2020-12-09 19:17 | NUR ---
ZOFRAN GIVEN RX-BEDRESTING
--- NOTE | 2020-12-09 20:20 | NUR ---
ZPFRAN EFFECTIVE. NO FURTHER NAUSEA
--- NOTE | 2020-12-09 22:06 | NUR ---
C/O H/A AND REQUESTED OTC MEDICATION. TYLENOL X 2 GIVEN PER REQUEST. LIGHTS OUT AND TV OFF
[2020-12-10] VITALS (12 sets, daily range): BP systolic 117–167; BP diastolic 64–86
--- NOTE | 2020-12-10 | NUR ---
BEDRESTING. DENIES H/A OR DISTRESS AT THIS TIME.
--- NOTE | 2020-12-10 01:38 | NUR ---
LIGHTS OUT. TV OFF. NS INFUSING TX-USING URINAL PRN. N/C VOIVED. BEHAVIOR APPROPRIATE THIS SHIFT
--- NOTE | 2020-12-10 03:30 | NUR ---
BEDRESTING. UP AD ABELARDO TO URINATE. NO DISTRESS NOTED
--- NOTE | 2020-12-10 05:21 | NUR ---
BEDRESTING. RESP EVEN AND NONLABORED. N/C AT THIS TIME
[2020-12-10 05:37] LABS: HEMATOCRIT 25.2 % (39.0-50.0); HEMOGLOBIN 8.8 g/dl (14.0-18.0); MEAN CELL VOLUME 100.8 fL CALC (80.0-100.0); MEAN CORPUSCULAR HGB 35.2 pG CALC (26.0-32.0); MEAN CORPUSCULAR HGB CONC 34.9 g/dL CAL (32.0-36.0); RED BLOOD COUNT 2.5 mill/uL (4.70-6.10); RED CELL DISTRI WIDTH 12.7 % (11.5-15.5)
[2020-12-10 05:45] LABS: ALBUMIN 3.6 g/dL (3.2-5.0); ALKALINE PHOSPHATASE 76 u/l (38-126); ANION GAP 13 (6-22 (CALC)); BILIRUBIN, TOTAL 0.7 mg/dL (0.0-1.4); BUN 11 mg/dL (9-20); BUN/CREATININE RATIO 18 (12-20 (CALC)); CARBON DIOXIDE 23 mmol/l (22-30); CHLORIDE 95 mmol/l (95-108); CREATININE 0.6 mg/dL (0.7-1.3); GFR > 60 ML/MIN (>=60 (CALC)); GFR FOR AFR.AMER. > 60 ML/MIN (>=60 (CALC)); POTASSIUM 3.3 mmol/l (3.5-5.1); SGOT/AST 172 u/l (17-59); SODIUM 128 mmol/l (137-146); TOTAL PROTEIN 5.8 g/dL (6.3-8.2)
--- NOTE | 2020-12-10 06:05 | NUR ---
PT REQUESTED FOR IV FLUIDS TO BE STOPPED "ALL I DO IS PISS". STATES HE IS DRINKING PO FLUIDS AND DOES NOT THINK HE NEEDS THE IV FLUIDS. AGREE TO HAVE THE IV MEDICATION "LITTLE BAGS ARE OK... JUST NO MORE BIG BAGS"
--- NOTE | 2020-12-10 07:18 | NUR ---
PT REPORT RECEIVED FROM [employer] AUDITOR. PT ALERT/ORIENTED X3, DENIES ANY COMPLAINTS AT THIS TIME, STATES LEFT EYE IS OPENING BETTER, NO SIGHT PROBLEMS, REMAINS WITH BRUISING TO SAUL EYES AND LEFT SIDE OF FOREHEAD FROM FALL WHILE DRINKING HE STATES. STATES DRINKS ALOT OF HARD ALCOHOL EVERY DAY FOR YEARS.
--- NOTE | 2020-12-10 09:06 | NUR ---
DR. GAMEZ AT BEDSIDE
--- NOTE | 2020-12-10 10:37 | NUR ---
RECIEVED REPORT FROM NELLI CEVALLOS
--- NOTE | 2020-12-10 10:38 | NUR ---
PT REPORT CALLED TO CHAPARRITA ON MED SURG, PT TO BE SENT TO ROOM 279 PER W/C
--- NOTE | 2020-12-10 10:50 | NUR ---
PT ARRIVED TO [facility] ROOM 279 VIA WHEELCHAIR IN STABLE CONDITION ACCOMPAINED BY NELLI GARRIDO. PT IS A/O X3. ASSESSMENT AND VITALS COMPLETED. BP 128/83, HR 73, O2 100% ON ROOM AIR. REPSIRATIONS ARE EVEN AND UNLABORED WITH NO DISTRESS. LUNG SOUNDS CLEAR. HEART RHYTHM NORMAL. BOWEL SOUNDS ARE ACTIVE. RADIAL AND PEDAL PULSES ARE STRONG. #20G IN RAC AND #22G IN LH FLUSHED, SITE APPEARS HEALTHY AND PATENT. SKIN INTACT. BRUISING NOTED AROUND BILATERAL EYES. HEMATOMA NOTED TO LEFT FOREHEAD. PT COMPLAINS OF 4/10 HEADACHE, PT TO BE MEDICATED PER EMAR. PT DENIES OF ANY OTHER NEEDS. ALL SAFETY PRECAUTIONS ARE IN PLACE. WILL CONTINUE TO MONITOR.
--- NOTE | 2020-12-10 10:51 | NUR ---
PT TAKEN TO MED SURG PER W/C, REMAINS ALERT/ORIENTED X3, SMILING, ALL BELONGINGS FROM ER SENT WITH PT TO MED SURG
--- NOTE | 2020-12-10 11:40 | NUR ---
TYLENOL ADMINISTERED FOR HEAD ACHE
--- NOTE | 2020-12-10 16:34 | NUR ---
PT SITTING UP IN RECYLINER WATCHING TC. RESPIRATIONS ARE EVEN AND UNLABORED WITH NO DITRESS. #20G IN RFA REMOVED WITH CATHATER STILL INTACT. #22G IN RW REMAINS IN PLACE, SITE APPEARS HEALTHY AND PATENT. PT DENIES OF ANY PAINS AT THIS TIME. ALL SAFETY PRECAUTIONS ARE IN PLACE WITH CALL LIGHT IN REACH. WILL CONTINUE TO MONITOR.
--- NOTE | 2020-12-10 20:58 | NUR ---
PT SITTING UP IN CHAIR AT START OF SHIFT. NOTED THAT IV SITE TO R WRIST WAS DISLODGED AND HE CATHETER WAS HANGING OUT OF THE VEIN UNDER THE DRESSING. SITE TO R WRIST D/C'D. NEW SITE STARTED TO RAC #20 X 1 ATTEMPT. NO COMPICATIONS NOTED. PT TOLERATED WELL. SAFETY PRECAUTIONS IN PLACE, BED IN LOWEST POSITION, CALL LIGHT WITHIN REACH. WILL MONITOR
--- NOTE | 2020-12-11 00:55 | NUR ---
PT RESTING QUIETLY AT THIS TIME. NO COMPLAINTS VOICED. BREATHING EVEN AND UNLABORED. CIWA ASSESSMENT COMPLETED. DENIES PAIN. SAFETY PRECAUTIONS IN PLACE, CALL LIGHT WITHIN REACH
[2020-12-11 04:00] VITALS: BP 130/77
--- NOTE | 2020-12-11 04:26 | NUR ---
PT CONTINUES TO REST QUIETLY IN BED WITH HIS EYES CLOSED. NO COMPLAINT VOICED. DENIES PAIN. SAFETY PRECAUTIONS IN PLACE. WILL CONTINUE TO MONITOR
[2020-12-11 05:55] LABS: HEMATOCRIT 24.4 % (39.0-50.0); HEMOGLOBIN 8.5 g/dl (14.0-18.0); MEAN CELL VOLUME 99.6 fL CALC (80.0-100.0); MEAN CORPUSCULAR HGB 34.7 pG CALC (26.0-32.0); MEAN CORPUSCULAR HGB CONC 34.8 g/dL CAL (32.0-36.0); RED BLOOD COUNT 2.45 mill/uL (4.70-6.10); RED CELL DISTRI WIDTH 12.4 % (11.5-15.5)
[2020-12-11 06:24] LABS: ANION GAP 10 (6-22 (CALC)); BUN 11 mg/dL (9-20); BUN/CREATININE RATIO 21 (12-20 (CALC)); CHLORIDE 94 mmol/l (95-108); CREATININE 0.5 mg/dL (0.7-1.3); GFR > 60 ML/MIN (>=60 (CALC)); GFR FOR AFR.AMER. > 60 ML/MIN (>=60 (CALC)); MAGNESIUM 1.1 mg/dL (1.6-2.3); SODIUM 129 mmol/l (137-146)
[2020-12-11 06:47] LABS: CARBON DIOXIDE 28 mmol/l (22-30)
--- NOTE | 2020-12-11 07:00 | NUR ---
RECIEVED REPORT FROM TREVOR MULLER.
[2020-12-11 08:01] VITALS: BP 139/85
--- NOTE | 2020-12-11 08:01 | NUR ---
PT RESTING IN SEMI FOWLERS POSITION. PT IS A/OX3. ASSESSMENT AND VITALS COMPLETED. BP 139/85, HR 90, O2 100% ON ROOM AIR. RESPIRATIONS ARE EVEN AND UNLABORED WITH NO DISRTESS. LUNG SOUNDS ARE CLEAR. HEART RHYTHM IS NORMAL. BOWEL SOUNDS ARE ACTIVE. #20G RAC FLUSHED, SITE REMAINS HEALTHY AND PATENT. LEFT FOREHEAD HEMATOMA AND BRUISING AROUND EYES NOTED. SKIN INTACT. PT DENIES OF ANY PAINS OR DISCOMFORTS AT THIS TIME. ALL SAFETY PRECAUTIONS ARE IN PLACE WITH CALL LIGHT IN REACH. INSTRUCTED PT TO CALL FOR ASSISTANCE. WILL CONTINUE TO MONITOR.
[2020-12-11 08:46] VITALS: BP 139/85
--- NOTE | 2020-12-11 10:49 | NUR ---
DR GAMEZ AT BEDSIDE
--- NOTE | 2020-12-11 11:27 | NUR ---
PT AT BEDSIDE
[2020-12-11] MEDS ORDERED: CIPROFLOXACN500 MG PO (11:35)
[2020-12-11] MEDS ORDERED: PANTOPRAZOLE SO40 M1 PO (11:35)
[2020-12-11] MEDS ORDERED: METRONIDAZOL500 MG PO (11:36)
[2020-12-11] MEDS ORDERED: LIBRIUM25 M1 PO (11:36)
[2020-12-11] MEDS ORDERED: LOSARTAN POTASS25 MG PO (11:37)
[2020-12-11] MEDS ORDERED: LOPRESSOR25 M1 PO (11:37)
--- NOTE | 2020-12-11 12:15 | NUR ---
PT SITTING UP IN RECYLINER. RESPIRATIONS ARE EVEN AND UNLAORED WITH NO DISRTESS NOTED. #20G IN RAC INFUSING WITH IV MAG, SITE APPEARS HEALTHY AND PATENT. PT INFORMED OF DC AFTER ADMINSTRATION OF MAG. PT STATES THAT HE DOES NOT HAVE A RIDE FOR TODAY. OFFERED TO OBTAIN TAXI. PT ACCEPT. ALL SAFETY PRECAUTIONS ARE IN PLACE WITH CALL LIGHT IN REACH. WILL CONTINUE TO MONITOR.
--- NOTE | 2020-12-11 13:12 | NUR ---
PT WORRIED THAT [facility] WAS ABLE TO FILL PRESCRIPTIONS TODAY. [facility] CALLED VIA THIS CROSS ROLLER. CROSS ROLLER INFORMED THAT MEDICATIONS COULD BE FILLED TODAY. PHARMACY CLOSES AT 9 PM. PT INFORMED. VERBALIZED UNDERSTANDING.
--- NOTE | 2020-12-11 14:52 | NUR ---
PT EDUCATED ON DC INSTRUCTIONS AND NEW MEDATIONS THAT WERE SENT TO [facility].PT VERBLAIZED UNDERSTANDING. #20G IN RAC REMOVED WITH ATHATER STILL INTACT.TAXI TO BE CALLED. ALL SAFETY PRECAUTIONS ARE IN PLACE WITH CALL LIGHT IN REACH. WILL CONTINUE TO MONITOR.
--- NOTE | 2020-12-11 14:57 | NUR ---
[facility] CALLED. TAXI TO ARRIVE IN 10 MIN.
--- NOTE | 2020-12-11 15:15 | NUR ---
Discharge instructions given. Patient verbalizes understanding of same. Discharged in stable condition via Wheelchair to Home with staff. All belongings sent with pt. PT DC HOME IN STABLE CONDITION VIA TAXI IN STABLE CONDITION WITH ALL BELONGINGS AND CD INSTRUCTIONS.
== END 2020-12-11 15:07 | disposition home or self-care (01) | DRG 897 ==
LOC: ED 13:35 → ED-I 18:50 → ED 19:12 → ICU 19:13 → MS2 12-09 19:23 → ICU 12-09 20:52 → MS2 12-10 10:49
PROVIDERS: Family Medicine; Nurse Practitioner; Nurse Practitioner Family; ADMIT Internal Medicine; ATTEND Internal Medicine
DX: F10.10 Alcohol abuse, uncomplicated (principal); E87.1 Hypo-osmolality and hyponatremia; E87.2 Acidosis; K50.10 Crohn's disease of large intestine without complications; E86.0 Dehydration; K70.10 Alcoholic hepatitis without ascites; K29.80 Duodenitis without bleeding; D63.8 Anemia in other chronic diseases classified elsewhere; D69.59 Other secondary thrombocytopenia; S00.12XA Contusion of left eyelid and periocular area, initial encounter; S00.11XA Contusion of right eyelid and periocular area, initial encounter; S80.02XA Contusion of left knee, initial encounter; S80.01XA Contusion of right knee, initial encounter; S50.02XA Contusion of left elbow, initial encounter; S50.01XA Contusion of right elbow, initial encounter; I10 Essential (primary) hypertension; J44.9 Chronic obstructive pulmonary disease, unspecified; K21.9 Gastro-esophageal reflux disease without esophagitis; F17.210 Nicotine dependence, cigarettes, uncomplicated; F43.10 Post-traumatic stress disorder, unspecified; W18.30XA Fall on same level, unspecified, initial encounter; Y92.009 Unspecified place in unspecified non-institutional (private) residence as the place of occurrence of the external cause; Z87.11 Personal history of peptic ulcer disease; Z20.822 Contact with and (suspected) exposure to COVID-19
CPT/HCPCS: J1650; J2060; J3475

== ENCOUNTER 2021-01-03 07:09 | Inpatient (IN) | payer OTHER ==
[~2021-01-03] VITALS: Ht 165.1 cm; Wt 72.0 kg
[~2021-01-03 07:09] MED LIST changes: +CIPROFLOXACN500 MG PO; +METRONIDAZOL500 MG PO; +PANTOPRAZOLE SO40 M1 PO
--- NOTE | 2021-01-03 07:10 | NUR ---
TO ROOM VIA WHEELCHAIR IN STABLE CONDITION
[2021-01-03 08:05] LABS: HEMATOCRIT 25.9 % (39.0-50.0); HEMOGLOBIN 8.5 g/dl (14.0-18.0); IMMATURE GRANULOCYTES 0.4 % (0.0-5.0); MEAN CORPUSCULAR HGB 34.7 pG CALC (26.0-32.0); MEAN CORPUSCULAR HGB CONC 32.8 g/dL CAL (32.0-36.0); NEUT# 3.63 thou/uL (1.82-7.42); RED BLOOD COUNT 2.45 mill/uL (4.70-6.10); RED CELL DISTRI WIDTH 14.4 % (11.5-15.5)
[2021-01-03 08:08] LABS: MEAN CELL VOLUME 105.7 fL CALC (80.0-100.0)
--- NOTE | 2021-01-03 08:10 | NUR ---
RESTING ON STRETCHER. CALL MARTIN WITHIN REACH
[2021-01-03 08:21] LABS: ALBUMIN 4.7 g/dL (3.2-5.0); BILIRUBIN, TOTAL 1.4 mg/dL (0.0-1.4); CREATININE 2.7 mg/dL (0.7-1.3); MAGNESIUM 1.2 mg/dL (1.6-2.3); POTASSIUM 4.7 mmol/l (3.5-5.1); TOTAL PROTEIN 7.8 g/dL (6.3-8.2)
--- NOTE | 2021-01-03 09:10 | NUR ---
RESTING ON STRETCHER. CALL MARTIN WITHIN REACH. IVF INFUSING WITHOUT DIFFICULTY.
[2021-01-03 09:19] LABS: URINE BILIRUBIN - DIPSTICK MODERATE (NEGATIVE); URINE BLOOD DIPSTICK MODERATE (NEGATIVE); URINE COLOR YELLOW; URINE GLUCOSE - DIPSTICK NEGATIVE (NEGATIVE); URINE KETONE 40 mg/dL (NEGATIVE); URINE LEUK ESTERASE NEGATIVE (NEGATIVE); URINE PH 5.5 (4.5-8.0); URINE PROTEIN - DIPSTICK 100 mg/dL (NEG-TRACE); URINE SPECIFIC GRAVITY 1.025; URINE UROBILINOGEN - DIPSTICK 0.2 E.U./dL (0.2)
[2021-01-03 09:20] LABS: URINE NITRITE - DIPSTICK NEGATIVE (Negative)
[2021-01-03 09:28] LABS: URINE WBC 0-2 WBC/hpf (0-5)
--- NOTE | 2021-01-03 10:09 | NUR ---
REPORT CALLED TO PT TO BE TRANSFERRED WITH RN TO ICU
--- NOTE | 2021-01-03 10:10 | NUR ---
RECIEVED REPORT FROM ER NURSE SUYAPA.
--- NOTE | 2021-01-03 10:45 | NUR ---
PATIENT BROUGHT UP TO THE FLOOR. SETTLED IN BED.
--- NOTE | 2021-01-03 11:20 | NUR ---
PATIENT ASSESSED. ADMISSION IS COMPLETED. PATIENT HAS LEFT FACE BRUISE. STATED THAT IT IS A WEEK OLD. HE FELL DOWN AT HOME AND GOT "BEAT UP". LUNGS ARE CLEAR. A/O X3. SCORED A 1 ON THE CIWA. HYPOACTIVE BOWLSOUNDS. NO EDEMA PRESENT AT THIS TIME. STATED THAT HE IS WEAK WHEN HE WALKS BECAUSE "i DONT USE MY MUSCLES ANYMORE SO I JUST FALL ALL THE TIME". FALL PRECAUTIONS IN PLACED. EDUCATION WAS PROVIDED ABOUT IT, STATED THAT HE WILL ALWAYS CALL WHEN HE NEEDS HELP. NO PAIN OR DISCOMFORT AT THIS TIME. HE COMPLAINS OF BEING NPO PER DOCTORS ORDERS. EXPLAINED TO HIM THE REASONING HE STATED HE JUST DOESN'T UNDERSTAND WHY HE CAN'T HAVE JUST ONE MEAL. SAFETY MEASURES IN PLACE. CALL LIGHT IN REACH. WILL CONTINUE TO MONITOR.
[2021-01-03 11:30] VITALS: BP 123/67
[2021-01-03 12:00] VITALS: BP 128/67
--- NOTE | 2021-01-03 13:30 | NUR ---
PATIENT HAS A VISITOR WITH HIM. STATED THAT IT WAS HIS BEST FRIEND.
[2021-01-03 14:00] VITALS: BP 110/64
[2021-01-03 16:00] VITALS: BP 109/63
--- NOTE | 2021-01-03 16:14 | NUR ---
PATIENT IS RESTING IN BED.
--- NOTE | 2021-01-03 18:15 | NUR ---
PATIENT STATED "THANK YOU, IM HAPPY I GET TO EAT SOME FOOD".
[2021-01-03 19:05] VITALS: BP 102/53
--- NOTE | 2021-01-03 19:05 | NUR ---
awakens easily. c/o gen weakness. no active bleeding. thread grinder tool shows sinus rhythm hr 81. #22 rfa 1/2ns infusing @ 150cchr. no po intake or void @ present. bruising on lt side of body conts. says he fell 1 wk ago. fall precautions cont.
[2021-01-03 22:00] VITALS: BP 111/62
--- NOTE | 2021-01-03 22:00 | NUR ---
eyes closed. no distress. cardiac/vascular sonographer shows sionus rhythm hr 90.
[2021-01-04] VITALS (11 sets, daily range): BP systolic 104–123; BP diastolic 60–76
--- NOTE | 2021-01-04 00:01 | NUR ---
eyes closed. no distress. ivf infusing well.
--- NOTE | 2021-01-04 02:20 | NUR ---
voided per urinal. alarm security or surveillance monitor shows sinus tach hr 140-150.
--- NOTE | 2021-01-04 04:00 | NUR ---
resting quietly. resps een & unlabored. no apparent distress.
--- NOTE | 2021-01-04 04:34 | NUR ---
lab here. blood drawn.
[2021-01-04 05:32] LABS: BILIRUBIN, TOTAL 1.2 mg/dL (0.0-1.4); POTASSIUM 3.8 mmol/l (3.5-5.1)
[2021-01-04 05:33] LABS: ALBUMIN 3.2 g/dL (3.2-5.0); CREATININE 1.6 mg/dL (0.7-1.3); HEMATOCRIT 20.8 % (39.0-50.0); IMMATURE GRANULOCYTES 0.9 % (0.0-5.0); MEAN CORPUSCULAR HGB CONC 33.7 g/dL CAL (32.0-36.0); NEUT# 1.19 thou/uL (1.82-7.42); RED CELL DISTRI WIDTH 13.8 % (11.5-15.5); TOTAL PROTEIN 5.5 g/dL (6.3-8.2)
--- NOTE | 2021-01-04 06:00 | NUR ---
awakens easily. denies tremors. toll collector supervisor shows sinus rhythm hr 73.
--- NOTE | 2021-01-04 06:59 | NUR ---
PATIENT RECIEVED FROM [facility]TA NURSE LISE.
--- NOTE | 2021-01-04 07:50 | NUR ---
PATIENT ASSESSED. A/O X3. ABLE TO MAKE NEEDS KNOWN. STATES HE IS HAVING NO PAIN AT THIS TIME. SCORED A 0 ON CIWA AT THIS TIME. CLEAR LUNG SOUNDS THROUGHOUT. NORMAL HEART SOUNDS, SR ON MONITOR. DID GO UP TO 110-120 THIS AM WHEN TRANSFERRING TO CHAIR AT BEDSIDE. PATIENT STATED HE WASN'T DIZZY OR FEELING NAUSEA. ACTIVE BOWEL SOUNDS. NO EDEMA PRESENT. WEAK GAIT WHEN WALKING TO THE CHAIR. EATING BREAKFAST AT THIS TIME. STRIPPED THE BED TO CHANGE HIS LINENS. OFFERED A BEDBATH AFTER HE EATS, STATED THAT HE DOESN'T WANT IT TILL HE FEELING STRONGER. INFORMED HIM IM HERE TILL 7PM, ANYTIME BEFORE THEN IF HE CHANGES HIS MIND, ILL GLADLY HELP. SAFETY MEASURES IN PLACE. CALL LIGHT IN REACH. WILL CONTINUE TO MONITOR.
--- NOTE | 2021-01-04 10:57 | NUR ---
HUNG UP BANANA BAG. PLACED NEW BED SHEETS IN ROOM.
--- NOTE | 2021-01-04 13:00 | NUR ---
PATIENT REQUESTED TO GO BACK IN BED STATED THAT THE CHAIR IS VERY UNCOMFORTABLE.
--- NOTE | 2021-01-04 14:34 | NUR ---
PATIENT WATCHING TV IN BED. GAVE HIM ANOTHER BLANKET
--- NOTE | 2021-01-04 16:15 | NUR ---
PATIENT RESTING IN BED
--- NOTE | 2021-01-04 18:02 | NUR ---
PATIENT IS SITTING UP IN CHAIR EATING DINNER WATCHING TV
--- NOTE | 2021-01-04 19:15 | NUR ---
awake. denies distress. appears to feel better tonite. no active bleeding. hall monitor shows sinus rhythm hr 76. #22 rfa banana bag infusing @ 100cchr. po fluids taken well. voids per urinal. fall precautions cont.
--- NOTE | 2021-01-04 22:00 | NUR ---
eyes closed. no distress. linen supervisor shows sinus rhythm hr 90.
[2021-01-05] VITALS (15 sets, daily range): BP systolic 99–132; BP diastolic 62–88
--- NOTE | 2021-01-05 00:01 | NUR ---
eyes closed. no distress. ivf infusing well.
--- NOTE | 2021-01-05 02:00 | NUR ---
resting quietly. resps even & unlabored. no apparent distress.
--- NOTE | 2021-01-05 04:00 | NUR ---
eyes closed. desk monitor shows sinus rhythm hr 70.
--- NOTE | 2021-01-05 05:00 | NUR ---
lab here. blood drawn.
[2021-01-05 05:56] LABS: ALBUMIN 2.9 g/dL (3.2-5.0); ALKALINE PHOSPHATASE 105 u/l (38-126); ANION GAP 10 (6-22 (CALC)); BILIRUBIN, TOTAL 1.2 mg/dL (0.0-1.4); BUN 15 mg/dL (9-20); BUN/CREATININE RATIO 13 (12-20 (CALC)); CARBON DIOXIDE 27 mmol/l (22-30); CHLORIDE 98 mmol/l (95-108); CREATININE 1.2 mg/dL (0.7-1.3); GFR > 60 ML/MIN (>=60 (CALC)); GFR FOR AFR.AMER. > 60 ML/MIN (>=60 (CALC)); POTASSIUM 3.5 mmol/l (3.5-5.1); SGOT/AST 417 u/l (17-59); SODIUM 132 mmol/l (137-146); TOTAL PROTEIN 5.3 g/dL (6.3-8.2)
--- NOTE | 2021-01-05 05:58 | NUR ---
awake. watching tv. denies tremors.
[2021-01-05 06:07] LABS: RED BLOOD COUNT 1.8 mill/uL (4.70-6.10)
[2021-01-05 06:08] LABS: HEMOGLOBIN 6.4 g/dl (14.0-18.0); IMMATURE GRANULOCYTES 0.5 % (0.0-5.0); MEAN CELL VOLUME 102.8 fL CALC (80.0-100.0); MEAN CORPUSCULAR HGB 35.6 pG CALC (26.0-32.0); MEAN CORPUSCULAR HGB CONC 34.6 g/dL CAL (32.0-36.0); NEUT# 0.91 thou/uL (1.82-7.42); RED CELL DISTRI WIDTH 13.6 % (11.5-15.5)
[2021-01-05 06:09] LABS: HEMATOCRIT 18.5 % (39.0-50.0)
[2021-01-05 10:12] LABS: PROTHROMBIN TIME 9.8 SECONDS (9.0-12.5)
--- NOTE | 2021-01-05 10:38 | NUR ---
PT ALERT AND ORIENTED X 3. LUNGS CLEAR, RA. PT DOES NOT EXHIBIT ANY SYMPTOMS OF ALCOHOL WITHDRAWAL, I.E., NO SHAKING, NO CONFUSION, NO HALLUCINATIONS. PT SEEN BY DR GAMEZ THIS MORNING, NEW ORDERS BEING CARRIED OUT. PT RECEIVES UNIT OF PRBCs AT THIS TIME WITHOUT ADVERSE EFFECT. PT SEEN BY PHYSICAL THERAPIST. PT HOPES TO CHECK IN TO REHAB CENTER UPON DISCHARGE.
--- NOTE | 2021-01-05 12:41 | NUR ---
BLOOD TRANSFUSION CONTINUES WITHOUT ADVERSE REACTION. PT WITHOUT EVIDENCE OF WITHDRAWAL SYMPTOMS FROM ALCOHOL.
--- NOTE | 2021-01-05 14:38 | NUR ---
BLOOD TRANSFUSION X 2 UNITS PRBCs HAVE COMPLETED WITHOUT EVENT. PT UP AT BEDSIDE TO USE URINAL. PHYSICAL THERAPY HAS WORKED WITH PT TODAY. NO DISTRESS, NO WITHDRAWAL SYMPTOMS.
--- NOTE | 2021-01-05 18:15 | NUR ---
PT CONTINUES IN STABLE CONDITION BEFORE, NO DISTRESS, NO COMPLAINTS.
--- NOTE | 2021-01-05 21:13 | NUR ---
bedresting. resp even and nonlabored. no distress noted
--- NOTE | 2021-01-05 22:00 | NUR ---
bedresting. took hs librium-tolerated well. states he feels fine. no distress noted. no s/s tremors
[2021-01-06] VITALS (9 sets, daily range): BP systolic 113–131; BP diastolic 71–91
--- NOTE | 2021-01-06 00:06 | NUR ---
BEDRESTING. RESP EVEN AND NONLABORED. N/C VOICED
--- NOTE | 2021-01-06 02:00 | NUR ---
BEDRESTING. RESP EVEN AND NONLABORED. NO DISTRESS NOTED
--- NOTE | 2021-01-06 02:15 | NUR ---
BEDRESTING. CPAP IN USE. 0200 PAIN MEDICATION GIVEN RX. DOZING AT INTERVALS
--- NOTE | 2021-01-06 04:09 | NUR ---
bedresting. napping. n/c. iv is hl at this time
[2021-01-06 04:36] LABS: MEAN CORPUSCULAR HGB 32.1 pG CALC (26.0-32.0); MEAN CORPUSCULAR HGB CONC 34.5 g/dL CAL (32.0-36.0); RED BLOOD COUNT 3.05 mill/uL (4.70-6.10); RED CELL DISTRI WIDTH 17.9 % (11.5-15.5)
[2021-01-06 04:39] LABS: HEMATOCRIT 28.4 % (39.0-50.0); HEMOGLOBIN 9.8 g/dl (14.0-18.0); MEAN CELL VOLUME 93.1 fL CALC (80.0-100.0)
[2021-01-06 04:57] LABS: ANION GAP 9 (6-22 (CALC)); BUN 11 mg/dL (9-20); BUN/CREATININE RATIO 9 (12-20 (CALC)); CARBON DIOXIDE 25 mmol/l (22-30); CHLORIDE 104 mmol/l (95-108); CREATININE 1.2 mg/dL (0.7-1.3); GFR > 60 ML/MIN (>=60 (CALC)); GFR FOR AFR.AMER. > 60 ML/MIN (>=60 (CALC)); POTASSIUM 3.5 mmol/l (3.5-5.1); SODIUM 135 mmol/l (137-146)
[2021-01-06 05:03] LABS: MAGNESIUM 1.6 mg/dL (1.6-2.3)
--- NOTE | 2021-01-06 05:48 | NUR ---
LAB RESULTS HAVE RETURNED-IMPROVED FROM YESTERDAY. PT COOPERATIVE, BUT VERY QUIET. HE ONLY ANSWERS/RESPONDS WHEN SPOKEN TO. ONLY TOOK SIPS OF FLUIDS WITH MEDICATION. REMAINS IN BED. LIGHTS AND TV OFF.BOTH IV SITES ARE HL AT THIS TIME
--- NOTE | 2021-01-06 07:36 | NUR ---
PT SEEN AWAKE, ALERT, ORIENTED X 3. LUNGS CLEAR, RA. PT UPDATED ON IMPROVED LABS, STATES THAT HE STILL FEELS WEAK.
--- NOTE | 2021-01-06 10:08 | NUR ---
PT PROVIDED MILK OF MAGNESIA THIS MORNING PER NO BM FOR AT LEAST 3 DAYS, CURRENTLY ASSISTED TO BSC WITH RESULTS.
--- NOTE | 2021-01-06 15:23 | NUR ---
PT WAS TAKEN TO ROOM 260 FOR A SHOWER. PT DID WELL, BEARING HIS WEIGHT WITH STANDBY ASSIST. UPON RETURNING TO ROOM, PT SPOKE WITH HEAVY MOBILE EQUIPMENT REPAIRER CEASAR REGARDING PLAN OF CARE, WAS SEEN BY PHYSICAL THERAPIST AMOR, AND HAD A VISIT FROM HIS FRIEND WILL.
--- NOTE | 2021-01-06 16:07 | NUR ---
PT note: Patient continues to be profoundly weak. His Am Pac score is unchanged. He worked on supine to sit and sit to stand transfers. His transitionalmovements are very slow. He is able to stand with Mod assist of 1 and FWW but does demonstrate tremulous respnse to weight baering. He is able to perform some toe and and heel raises and mini squats but is completely exhousted after about 5 reps only. I encouraged him to independently perform supine to sit but to avoid attempts at standing without assist at this time as he is a great fall risk. Our plan is to continue gentle strengthening checking his pH level and progressing functional activities accordingly
--- NOTE | 2021-01-06 19:15 | NUR ---
REPORT GIVEN BY JEREMY. PATIENT RESTING IN BED. RESP EVEN AND UNLABORED. NO S/S OF DISTRESS NOTED. JHON GERARD PRECAUTIONS IN PLACE. IV SALINE LOCKED. PLAN OF CARE DISCUSSED. PATIENT INFORMED TO CALL WITH ANY QUESTIONS OR CONCERNS.
--- NOTE | 2021-01-06 22:01 | NUR ---
PM MEDICATIONS GIVEN PER MD ORDERS. PATIENT USED BSC, HAD A MODERATED SIZED BM
[2021-01-07] VITALS (12 sets, daily range): BP systolic 92–138; BP diastolic 52–86
--- NOTE | 2021-01-07 00:59 | NUR ---
patient resting with eyes closed. resp even and unlabored. no s/s of distress noted. fall and saftey precautions in place.
--- NOTE | 2021-01-07 04:00 | NUR ---
PATIENT RESTING WITH EYES CLOSED. RESP EVEN AND UNLABORED. NO S/S OF DISTRESS NOTED. FALL AND SAFTEY PRECAUTIONS IN PLACE.
[2021-01-07 06:19] LABS: HEMATOCRIT 27.2 % (39.0-50.0); HEMOGLOBIN 9.3 g/dl (14.0-18.0); MEAN CELL VOLUME 95.8 fL CALC (80.0-100.0); MEAN CORPUSCULAR HGB 32.7 pG CALC (26.0-32.0); MEAN CORPUSCULAR HGB CONC 34.2 g/dL CAL (32.0-36.0); RED BLOOD COUNT 2.84 mill/uL (4.70-6.10); RED CELL DISTRI WIDTH 18.1 % (11.5-15.5)
[2021-01-07 06:32] LABS: ALBUMIN 2.7 g/dL (3.2-5.0); ALKALINE PHOSPHATASE 116 u/l (38-126); ANION GAP 9 (6-22 (CALC)); BUN 14 mg/dL (9-20); BUN/CREATININE RATIO 13 (12-20 (CALC)); CARBON DIOXIDE 27 mmol/l (22-30); CHLORIDE 104 mmol/l (95-108); CREATININE 1.1 mg/dL (0.7-1.3); GFR > 60 ML/MIN (>=60 (CALC)); GFR FOR AFR.AMER. > 60 ML/MIN (>=60 (CALC)); POTASSIUM 3.5 mmol/l (3.5-5.1); SGOT/AST 310 u/l (17-59); SODIUM 137 mmol/l (137-146)
[2021-01-07 06:37] LABS: BILIRUBIN, TOTAL 0.7 mg/dL (0.0-1.4)
--- NOTE | 2021-01-07 07:55 | NUR ---
PT SITTING ON THE SIDE OF THE BED. A&O X4. FLAT AFFECT NOTED. CLEAR BREATH SOUNDS UPON AUSCULTATION. ACTIVE BOWEL SOUNDS X4 QUADRANTS. PT DENIES ANY N&V, CIWA SCORE OF 0 GIVEN AT THIS TIME. IVS HEALTHY AND PATENT. CURRENTLY SR ON MONITOR. PT REPORTS WEAKNESS. WALKER AT BEDSIDE, PHYSICAL THERAPY TO CONTINUE. ASSESSMENT COMPLETED. DISCUSSED POC. CALL LIGHT WITHIN REACH.
--- NOTE | 2021-01-07 08:50 | NUR ---
DR ONEILL AT BEDSIDE DISCUSSING POC
--- NOTE | 2021-01-07 10:00 | NUR ---
PT SITTING IN BED. NO DISTRESS NOTED. CALL LIGHT WITHIN REACH.
--- NOTE | 2021-01-07 12:00 | NUR ---
PT SITTING ON THE SIDE OF THE BED EATING LUNCH. NO DISTRESS NOTED. CALL LIGHT WITHIN REACH.
--- NOTE | 2021-01-07 14:00 | NUR ---
PT SLEEPING IN BED. NO DISTRESS NOTED. CALL LIGHT WITHIN REACH.
--- NOTE | 2021-01-07 16:00 | NUR ---
PT SLEEPING IN BED. NO DISTRESS NOTED. CALL LIGHT WITHIN REACH.
--- NOTE | 2021-01-07 16:30 | NUR ---
PHYSICAL THERAPY AT BEDSIDE
--- NOTE | 2021-01-07 18:00 | NUR ---
PT IN BED WATCHING TV. NO DISTRESS NOTED. CALL LIGHT WITHIN REACH.
--- NOTE | 2021-01-07 19:00 | NUR ---
REPORT GIVEN BY ROCK. PATIENT RESTING IN BED. ALERT AND ORIENTED. PATIENT STATES HE STILL FEELS WEAK. FALL AND SAFTEY PRECAUTIONS IN PLACE. USING URINAL AT BEDSIDE. IV INFUSING BANANA BAG. RESP EVEN AND UNLABORED. NO S/S OF DISTRESS NOTED. PLAN OF CARE DISCUSSED. PATIENT INFORMED TO CALL WITH ANY QUESTIONS OR CONCERNS.
--- NOTE | 2021-01-07 20:15 | NUR ---
PT note Patient is seen for transfer training and closed chain strengthening. He was able to stand with CGA of 1. He performed 2 sets of 5 mini squats and 2 sets of 5 long stepping with FWW, He is able to march in place x 30 seconds before muscle fatigue prevented further intervention He is improving with his function and our plan is to contiue strengthening and functional training with return to gait
--- NOTE | 2021-01-07 22:11 | NUR ---
PM MEDICATION GIVEN PER MD ORDERS
[2021-01-08] VITALS (13 sets, daily range): BP systolic 88–133; BP diastolic 54–86
--- NOTE | 2021-01-08 00:39 | NUR ---
PATIENT RESTING WITH EYES CLOSED. RESP EVEN AND UNLABORED. N S/S OF DISTRESS NOTED.
--- NOTE | 2021-01-08 04:13 | NUR ---
LAB AT BEDSIDE
[2021-01-08 05:56] LABS: HEMATOCRIT 25.7 % (39.0-50.0); HEMOGLOBIN 8.8 g/dl (14.0-18.0); MEAN CELL VOLUME 95.2 fL CALC (80.0-100.0); MEAN CORPUSCULAR HGB 32.6 pG CALC (26.0-32.0); MEAN CORPUSCULAR HGB CONC 34.2 g/dL CAL (32.0-36.0); RED BLOOD COUNT 2.7 mill/uL (4.70-6.10); RED CELL DISTRI WIDTH 17.6 % (11.5-15.5)
[2021-01-08 06:16] LABS: ALBUMIN 2.7 g/dL (3.2-5.0); ALKALINE PHOSPHATASE 119 u/l (38-126); ANION GAP 9 (6-22 (CALC)); BILIRUBIN, TOTAL 0.6 mg/dL (0.0-1.4); BUN 14 mg/dL (9-20); BUN/CREATININE RATIO 16 (12-20 (CALC)); CARBON DIOXIDE 27 mmol/l (22-30); CHLORIDE 104 mmol/l (95-108); CREATININE 0.9 mg/dL (0.7-1.3); GFR > 60 ML/MIN (>=60 (CALC)); GFR FOR AFR.AMER. > 60 ML/MIN (>=60 (CALC)); POTASSIUM 3.4 mmol/l (3.5-5.1); SGOT/AST 220 u/l (17-59); SODIUM 137 mmol/l (137-146); TOTAL PROTEIN 4.9 g/dL (6.3-8.2)
--- NOTE | 2021-01-08 08:00 | NUR ---
PT SITTING UP AT BEDSIDE, DENIES PAIN, NO S/S OF DISTRESS NOTED
--- NOTE | 2021-01-08 10:00 | NUR ---
MEDS PASSED, SEEN BY MD DURING ROUNDS, DENIES ANY NEEDS
--- NOTE | 2021-01-08 12:00 | NUR ---
PT DENIES ANY NEEDS, RESTING IN BED
--- NOTE | 2021-01-08 14:00 | NUR ---
PT SLEEPING IN BED WITH MASK ON EYES
--- NOTE | 2021-01-08 15:01 | NUR ---
"I LIKE IT DARK." PT. INSTRUCTED IN SAFE TRANSFER FROM SIT <-> STAND AND ENCOURAGED PATIENT TO PERFORM SIMPLE ADLS OF GROOMING. PATIENT WASHED FACE AND HANDS WITH WASH CLOTH, COMBED HAIR I'LY, BRUSHED TEETH I'LY SITTING AT EDGE OF BED, THEN NEEDED MIN A WITH SIT <-> STAND TRANSFER THEN USED R.W. TO CHAIR SEVERAL STEPS WITH CG. PATIENT INSTRUCTED IN STANDING WHILE PERFORMING UE THER EX WITH DIAPHRAGMATIC BREATHING X 8 MIN WITH CG. PATIENT REPORTED NEEDING TO SIT DOWN AND NEEDED CG FOR SAFETY. O.T. LEFT CALL LIGHT WITH PATIENT SITTING IN CHAIR. PATIENT NEEDED ENCOURAGEMENT. CONTINUE TO PROGRESS WITH P.O.C.
--- NOTE | 2021-01-08 15:39 | NUR ---
PT BEING DOWNGRADED TO MS UNIT, REPORT CALLED TO NELLI SALAZAR.
--- NOTE | 2021-01-08 15:41 | NUR ---
pt agreed to participate in physical therapy. He was able to transition from supine to sitting on EOB with min assist. Mod assist to stand at RW where he then completed mini squats x10, heel raises x10, marching in place x10, hip abduction x10. After a seated rest break he completed another round of the same exercises for a total of 2x10 for each exercise. CGA with gait belt throughout weight bearing activities. Pt was left comfortable in bed with call light in reach. Ampac=9
--- NOTE | 2021-01-08 16:05 | NUR ---
PT TRANSFERED TO MS UNIT VIA WHEELCHAIR WITH ALL BELONGINGS, VSS
--- NOTE | 2021-01-08 16:11 | NUR ---
PT TRANSFERRED TO MED SURG FLOOR FROM ICU VIA WC IN STABLE CONDITION ACCOMPANIED BY NURSE WILKERSON;PT ORIENTED TO NEW ROOM AND SURROUNDINGS;SAFETY PRECAUTIONS IN PLACE;CALL LIGHT WITHIN REACH;PT ENCOURAGED TO CALL WITH ANY ISSUES OR CONCERNS;WILL CONTINUE TO MONITOR;
--- NOTE | 2021-01-08 19:30 | NUR ---
AIDE REPORTED THAT PT'S BP IS 88/58. PT WAS PLACED IN [place]. LOC X3. DENIES ANY DISTRESS. NO TREMORS VISIBLE AT THIS TIME AND PT DENIES ANY AUDITORY OR VISUAL DISTURBANCES.
--- NOTE | 2021-01-08 20:15 | NUR ---
PT BP REASSESSED AT 92/54. PT ASKING FOR HIS HEAD TO BE ELEVATED BACK UP/PROVIDED. WILL RECHECK BP IN 30 MINUTES FOR CHANGE TO MAKE SURE HE IS MAINTAINING. RECORD OF PT DROPPING LOW AT THIS TIME PREVIOUS DAY. WILL MONITOR.
--- NOTE | 2021-01-08 23:12 | NUR ---
PT V/S ASSESSED 105/70,HR67 PT WAS SLEPEING, AWOKE TO MY VOICE. NO S/O DISTRESS NOTED. PT MEDICATED ORDERS PROVIDE.
[2021-01-09 04:33] VITALS: BP 111/76
--- NOTE | 2021-01-09 05:30 | NUR ---
PT MEDICATED W/LIBRIUM. HE WAS SLEEPING, AWOKE TO MY VOICE. NO S/O DISTRESSES NOTED. HE DOES HAVE MILD TREMORS VISIBLE WHILE HANDLIN HIS PILL AND CUP OF WATER. DENIES ANY OTHER DISTRESS.
--- NOTE | 2021-01-09 07:00 | NUR ---
PT REPORT RECEIVED FROM NIGHT NURSEKRYSTAL
[2021-01-09 07:52] LABS: HEMATOCRIT 26.8 % (39.0-50.0); HEMOGLOBIN 9.1 g/dl (14.0-18.0); MEAN CELL VOLUME 96.1 fL CALC (80.0-100.0); MEAN CORPUSCULAR HGB 32.6 pG CALC (26.0-32.0); RED BLOOD COUNT 2.79 mill/uL (4.70-6.10); RED CELL DISTRI WIDTH 17.6 % (11.5-15.5)
--- NOTE | 2021-01-09 08:00 | NUR ---
PT WAS FOUND RESTING IN BEDSIDE CHAIR;PT IS A&OX3;VS AND ASSESSMENT WERE COMPLETED;PT HAS A CIWA SCORE OF 4 DUE TO SLIGHT TREMORS NOTED IN HANDS;HEART SOUNDS ARE REGULAR IN RATE AND RHYTHM;LUNG SOUNDS ARE CLEAR;RESPIRATIONS ARE EVEN AND UNLABORED ON RA;#20G IV IN LFA IS SL, PATENT AND APPEARS FREE OF COMPLICATIONS AT THIS TIME;#22G IV IN RFA IS SL, PATENT AND APPEARS FREE OF COMPLICATIONS AT THIS TIME;SAFETY PRECAUTIONS IN PLACE;CALL LIGHT WITHIN REACH;PT ENCOURAGED TO CALL WITH ANY NEEDS OR CONCERNS;WILL CONTINUE TO MONITOR.
[2021-01-09 08:04] LABS: ANION GAP 9 (6-22 (CALC)); BUN 13 mg/dL (9-20); BUN/CREATININE RATIO 14 (12-20 (CALC)); CARBON DIOXIDE 28 mmol/l (22-30); CHLORIDE 102 mmol/l (95-108); GFR > 60 ML/MIN (>=60 (CALC)); GFR FOR AFR.AMER. > 60 ML/MIN (>=60 (CALC)); POTASSIUM 3.9 mmol/l (3.5-5.1); SODIUM 135 mmol/l (137-146)
[2021-01-09 08:15] VITALS: BP 104/65
[2021-01-09 08:24] LABS: MAGNESIUM 0.9 mg/dL (1.6-2.3)
--- NOTE | 2021-01-09 12:00 | NUR ---
PT WAS FOUND RESTING IN BEDSIDE CHAIR EATING LUNCH;CIWA SCORE WAS NOTED 1;PT IS CALM AND COOPERATIVE AT THIS TIME;PT ENCOURAGED TO AMBULATE MORE;PT REQUESTED A WALKER;WALKER WAS OBTAINED FROM PHYSICAL THERAPY AND PLACED IN ROOM;SAFETY PRECAUTIONS IN PLACE;CALL LIGHT WITHIN REACH;WILL CONTINUE TO MONITOR.
--- NOTE | 2021-01-09 13:40 | NUR ---
Physical Therapy Note: Patient seend and treated today. Patient identified by full name and date of . Physical Therapy Management: 1. Supine to sit and sit to supine. 2. Sitting tolerance of 10-15 minutes 3. Sit to stand 4. Active range of motion of the UE x 5-10 repetitions 5. Active range of motion of the LE x 5-10 repetitions 6. Gait training with + 1 minimal assist x 20-30 feet. Rest periods given in between exercises. Patient fatigued quickly during gait training but was able to recover after a rest period. Patient went back to bed after physical therapy session. Call button within reach.
--- NOTE | 2021-01-09 14:48 | NUR ---
"I'M MAD BECAUSE I LOST MY CALL." PATIENT AGREED TO GETTING UP OUT OF BED, HOWEVER, DECLINED ADLS. PATIENT PERFORMED SUPINE -> SIT WITH S, SIT <-> STAND WITH S. O.T. INSTRUCTED PATIENT IN STANDING DIAPHRAGMATIC BREATHING AND UE AROM EXERCISES AND DISCUSSED COPING SKILLS TO DECREASE HIS STRESS AND PATIENT VERBALIZED UNDERSTANDING. O.T. INSTRUCTED PATIENT IN DYNAMIC STANDING BALANCE EXERCISES REACHING IN FRONT AND SIDE TO SIDE AND PATIENT PERFORMED EACH X 3 S L.O.B. PT. SAT IN CHAIR WITH S AND SET UP WITH CALL LIGHT AND TABLE.
[2021-01-09 15:33] VITALS: BP 97/66
--- NOTE | 2021-01-09 16:00 | NUR ---
PT WAS FOUND RESTING IN BED WITH VISITOR PRESENT;CIWA SCORE IS STILL AT 1;#20G IV IN LFA AND #22G IV IN RFA ARE SL, PATENT AND APPEAR FREE OF COMPLICATIONS AT THIS TIME;SAFETY PRECAUTIONS IN PLACE;CALL LIGHT WITHIN REACH;WILL CONTINUE TO MONITOR.
[2021-01-09 20:00] VITALS: BP 94/56
--- NOTE | 2021-01-09 20:00 | NUR ---
PATIENT RESTING IN BED WITH EYES CLOSED. DENIES PAIN. ASSESSMENT COMPLETE AND CHARTED. NO ACUTE DISTRESS NOTED. BED IN LOW POSITION. CALL LIGHT WITHIN REACH.
--- NOTE | 2021-01-10 01:29 | NUR ---
PATIENT RESTING WITH EYES CLOSED. NO ACUTE DISTRESS NOTED.
[2021-01-10 04:00] VITALS: BP 103/68
--- NOTE | 2021-01-10 04:25 | NUR ---
PATIENT RESTING WITH EYES CLOSED. NO ACUTE DISTRESS NOTED.
[2021-01-10 05:09] LABS: HEMATOCRIT 26.8 % (39.0-50.0); HEMOGLOBIN 8.7 g/dl (14.0-18.0); MEAN CELL VOLUME 98.5 fL CALC (80.0-100.0); MEAN CORPUSCULAR HGB CONC 32.5 g/dL CAL (32.0-36.0); RED BLOOD COUNT 2.72 mill/uL (4.70-6.10); RED CELL DISTRI WIDTH 17.7 % (11.5-15.5)
[2021-01-10 05:27] LABS: ANION GAP 8 (6-22 (CALC)); BUN 14 mg/dL (9-20); BUN/CREATININE RATIO 14 (12-20 (CALC)); CARBON DIOXIDE 28 mmol/l (22-30); CHLORIDE 103 mmol/l (95-108); GFR > 60 ML/MIN (>=60 (CALC)); GFR FOR AFR.AMER. > 60 ML/MIN (>=60 (CALC)); SODIUM 135 mmol/l (137-146)
[2021-01-10 05:56] LABS: MAGNESIUM 1.5 mg/dL (1.6-2.3)
--- NOTE | 2021-01-10 08:19 | NUR ---
PATIENT IS SITTING IN RECLINER. ASSESSMENT DONE. PATIENT IS ALERT AND ORIENT X3. PATIENT DENIES PAIN. RESPS EVEN AND UNLABORED. CIWA IS ONE. PATIENT DENIES NEEDS AT THIS TIME. CALL LIGHT IN REACH.
[2021-01-10 08:27] VITALS: BP 94/62
--- NOTE | 2021-01-10 11:30 | NUR ---
PATIENT IS SITTING IN THE CHAIR WITH NO DISTRESS NOTED. PATIENT DENIES PAIN OR NEEDS AT THIS TIME. CALL LIGHT IN REACH.
[2021-01-10 15:05] VITALS: BP 86/51
--- NOTE | 2021-01-10 15:58 | NUR ---
Patient did B LE AROM exercises in seated position: hip flexion, hip adduction and abduction, hamstring curls, knee extension, ankle AROM, and gluteal squeezes for 10 reps x 3 sets with occasional verbal and tactile cuing to decrease trick movements and fall risks. Patient also did log rolling bed mobility and sit to stand push off transfers from bed for 3 reps with constant verbal and tactile cuing to help decrease trick movement and fall risks. Patient did gait training with use of RW covering 10 feet x 3 reps with occasional lateral swaying with CGA to SBA x 1 on level surfaces.
--- NOTE | 2021-01-10 16:00 | NUR ---
PATIENT IS RESTING IN BED WITH NO DISTRESS NOTED. PATIENT DENIES NEEDS AT THIS TIME. CALL LIGHT IN REACH.
[2021-01-10 16:16] VITALS: BP 94/57
[2021-01-10 20:00] VITALS: BP 103/67
--- NOTE | 2021-01-10 20:00 | NUR ---
PATIENT IS ALERT AND AWAKE. CALM. CANADIAN SPEAKING. RESPIRATIONS EASY ON ROOM AIR. ON TELEMETRY. HEART RATE REGULAR. LEFT ANKLE SPLINTED DUE TO FRACTURE. C/O PAIN 10. UP TO BEDSIDE COMMODE WITH MAX ASSIST. MEDICATIN COMPLIANT. LEGS ELEVATED. BED IN LOW POSITION. CALL LIGHT WITHIN REACH. BED ALARM ACTIVATED.
--- NOTE | 2021-01-10 20:00 | NUR ---
PATIENT AWAKE IN BED. PLEASANT. CALM. DENIES PAIN. ASSESSMENT COMPLETE. NO ACUTE DISTRESS. CIWA 1. BED IN LOW POSITION. CALL LIGHT WITHIN REACH.
[2021-01-11 04:00] VITALS: BP 108/68
[2021-01-11 06:00] LABS: ANION GAP 9 (6-22 (CALC)); BUN 16 mg/dL (9-20); BUN/CREATININE RATIO 16 (12-20 (CALC)); CARBON DIOXIDE 29 mmol/l (22-30); CHLORIDE 104 mmol/l (95-108); GFR > 60 ML/MIN (>=60 (CALC)); GFR FOR AFR.AMER. > 60 ML/MIN (>=60 (CALC)); MAGNESIUM 1.6 mg/dL (1.6-2.3); SODIUM 138 mmol/l (137-146)
[2021-01-11 08:02] VITALS: BP 105/69
--- NOTE | 2021-01-11 08:02 | NUR ---
PT SITTING IN CHAIR. A&O X4. FLAT AFFECT NOTED. NO PAIN REPORTED AT THIS TIME. CLEAR BREATH SOUNDS UPON AUSCULTATION. ACTIVE BOWEL SOUNDS X4 QUADRANTS. IV HEALTHY AND PATENT. PT VERBALIZES IMPROVEMENT REGARDING GAIT AND STRENGTH. WALKER AT BEDSIDE. CIWA SCORE OF 1 GIVEN. ASSESSMENT COMPLETED. DISCUSSED POC. CALL LIGHT WITHIN REACH.
--- NOTE | 2021-01-11 14:28 | NUR ---
PT SITTING IN BED WATCHING TV. NO DISTRESS NOTED OR NEEDS AT THIS TIME. CALL LIGHT WITHIN REACH.
--- NOTE | 2021-01-11 16:00 | NUR ---
PT LAYING IN BED. NO NEEDS AT THIS TIME. CALL LIGHT WITHIN REACH.
[2021-01-11 16:47] VITALS: BP 127/81
[2021-01-11 19:44] VITALS: BP 98/64
--- NOTE | 2021-01-11 20:41 | NUR ---
PATIENT LAYING IN BED. ALERT AND ORIENTED. C/O PAIN 2/10 TO BILATERAL LEGS. REFUSED TYLENOL. ASSESSMENT COMPLETE. CIWA SCORE 0 AT THIS TIME. BED IN LOW POSITION. CALL LIGHT WITHIN REACH.
--- NOTE | 2021-01-12 00:51 | NUR ---
PATIENT RESTING QUIETLY. NO ACUTE DISTRESS NOTED.
--- NOTE | 2021-01-12 03:59 | NUR ---
RESTING QUIETLY. NO ACUTE DISTRESS NOTED.
[2021-01-12 04:00] VITALS: BP 118/68
[2021-01-12 06:10] LABS: HEMOGLOBIN 8.7 g/dl (14.0-18.0); MEAN CORPUSCULAR HGB 32.2 pG CALC (26.0-32.0); MEAN CORPUSCULAR HGB CONC 32.2 g/dL CAL (32.0-36.0); RED BLOOD COUNT 2.7 mill/uL (4.70-6.10); RED CELL DISTRI WIDTH 17.5 % (11.5-15.5)
[2021-01-12 06:29] LABS: ANION GAP 10 (6-22 (CALC)); BUN 18 mg/dL (9-20); BUN/CREATININE RATIO 20 (12-20 (CALC)); CARBON DIOXIDE 27 mmol/l (22-30); CHLORIDE 105 mmol/l (95-108); CREATININE 0.9 mg/dL (0.7-1.3); GFR > 60 ML/MIN (>=60 (CALC)); GFR FOR AFR.AMER. > 60 ML/MIN (>=60 (CALC)); MAGNESIUM 1.3 mg/dL (1.6-2.3); POTASSIUM 3.9 mmol/l (3.5-5.1); SODIUM 138 mmol/l (137-146)
[2021-01-12 08:20] VITALS: BP 105/63
--- NOTE | 2021-01-12 08:20 | NUR ---
ASSESSMENT IS COMPLETED: IV SITE IS FREE FROM REDNESS OR EDEMA. HR IS REG,PULSES ARE STRONG X4, ABD IS SOFT WITH ACTIVE BS. BREATH SOUNDS ARE CLEAR, BILATERALLY. PT HAS BEEN SITTING IN THE CHAIR,CIWA IS ZERO. CONTINUE TO OBSERVE AND MONITOR.
--- NOTE | 2021-01-12 10:26 | NUR ---
"I'M HERE." PT. RECEIVED SITTING ON EDGE OF BED IN DARK ROOM. PT. REPORTED BEEN SLEEPING AND EATING WELL. PT. INSTRUCTED IN SAFE SIT <-> STAND TRANSFERS AND PATIENT PERFORMED WITH S. PT. INSTRUCTED IN STANDING UE THER EX X 10 MIN USING DIAPHRAGMATIC BREATHING AND PATIENT WAS ABLE TO COMPLETE 10 MIN IN STANDING S L.O.B. PATIENT REPORTED HIS STRENGTH COMES AND GOES. PATIENT IS COOPERATIVE AND MOTIVATED TO IMPROVE, HOWEVER, HAS A FLAT AFFECT. PATIENT REPORTED BEEN GOING TO THE BATHROOM HIMSELF NOW AND DOING BETTER AND LOOKING FORWARD TO GOING TO PHYSICAL REHAB FIRST TO IMPROVE STRENGTH. AM PAC SCORE OF 16 INDICATES D/C TO REHAB/IRF.
--- NOTE | 2021-01-12 11:47 | NUR ---
PT IS SITTING UP AND INQUIRIN G IF WE HAD SOMETHING TO READ. GAVE A BOOK TO GIVE HIM SOMEHTING TO READ.
[2021-01-12 14:00] VITALS: BP 100/62
--- NOTE | 2021-01-12 16:30 | NUR ---
PT HAS BEEN RESTING IN BED WITH NO DISTRESS NOTED. IV SITE IS FREE FROM REDNESS OR EDEMA.
[2021-01-12 19:33] VITALS: BP 101/66
--- NOTE | 2021-01-13 00:37 | NUR ---
Pt received from dayshift RN pt in bed stable alert and oriented Pt very quiet with no complaints meds given and tolerated. assesment done by RN. Pt remain in bed resting.
--- NOTE | 2021-01-13 01:22 | NUR ---
PT IN BED RESTING STABLE WITH NO COMPLAINTS MONITORED BY RN AND DESTINATION IMAGINATION COORDINATOR.
--- NOTE | 2021-01-13 04:20 | NUR ---
pt in bed resting stable no complaints. been monitored by RN and DOWN FILLER
[2021-01-13 04:42] VITALS: BP 118/66
[2021-01-13 05:45] LABS: ANION GAP 10 (6-22 (CALC)); BUN 17 mg/dL (9-20); BUN/CREATININE RATIO 16 (12-20 (CALC)); CARBON DIOXIDE 27 mmol/l (22-30); CHLORIDE 105 mmol/l (95-108); CREATININE 1.1 mg/dL (0.7-1.3); GFR > 60 ML/MIN (>=60 (CALC)); GFR FOR AFR.AMER. > 60 ML/MIN (>=60 (CALC)); MAGNESIUM 1.5 mg/dL (1.6-2.3); SODIUM 138 mmol/l (137-146)
[2021-01-13] MEDS ORDERED: MAGNESIUM OXID400 M1 PO (07:41)
[2021-01-13] MEDS ORDERED: BUPROPION HCL150 M2 PO (07:41)
[2021-01-13] MEDS ORDERED: PANTOPRAZOLE SO40 M1 PO (07:41)
[2021-01-13] MEDS ORDERED: FOLIC ACID1 M1 PO (07:41)
[2021-01-13] MEDS ORDERED: VITAMIN B-121000 MCG PO (07:44)
[2021-01-13] MEDS ORDERED: LIBRIUM25 MG PO (07:50)
[2021-01-13 08:30] VITALS: BP 108/59
--- NOTE | 2021-01-13 08:30 | NUR ---
ASSESSMENT IS COMPLETED: IV SITE IS FREE FROM REDNESS OR EDEMA. HR IS REG,PULSES ARE STRONG X4, ABD IS SOFT WITH ACTIVE BS. BREATH SOUNDS ARE CELAR,BILATERALLY. CONTINUE TO OSBERVE AND MONITOR.
[2021-01-13 09:39] VITALS: BP 118/66
--- NOTE | 2021-01-13 10:40 | NUR ---
"I FEEL PRETTY GOOD." PT. INSTRUCTED IN GETTING OUT OF BED AND PATIENT PERFORMED WITH S. PT. PERFORMED SIT -> STAND WITH S AND PATIENT USED NO A.D. TO BATHROOM WITH CGA FROM O.T. PT. STOOD X 10 MIN AND PERFORMED GROOMING I'LY AT SINK WASHING FACE, COMBING HAIR, BRUSHING TEETH. PT. PERFORMED F.M. S A.D. BACK TO ROOM AND SAT IN CHAIR I'LY AND LEFT WITH CALL LIGHT AT SIDE. PT. MADE EXCELLENT PROGRESS AND HAS IMPROVED MOTIVATION. PT. BEING D/C'D TO REHAB TODAY.
--- NOTE | 2021-01-13 11:14 | NUR ---
IV SITE BEING DISCONTINUED CATHETER INTACT. NO REDNESS OR EDEMA.
--- NOTE | 2021-01-13 12:00 | NUR ---
PT IS RELAXING IN THE [facility] AND [facility] HERE TO TRANSPORT PT TO [facility].
--- NOTE | 2021-01-13 12:08 | NUR ---
CALLED AND GAVE REPORT TO SHAKEEL AIKEN AT [facility]&. [facility] ALREADY LEFT WITH PT AT 1206 VIA STRETCHER
== END 2021-01-13 12:02 | DRG 809 ==
LOC: ED 07:09 → ED-I 09:04 → ED 09:28 → ICU 09:29 → MS2 01-08 16:11
PROVIDERS: Emergency Medicine; Nurse Practitioner; ADMIT Internal Medicine; ATTEND Internal Medicine
PROC: 30233N1 Transfusion of Nonautologous Red Blood Cells into Peripheral Vein, Percutaneous Approach (ICD-10-PCS; principal; 2021-01-05)
PROC: 30233N1 Transfusion of Nonautologous Red Blood Cells into Peripheral Vein, Percutaneous Approach (ICD-10-PCS; 2021-01-05)
DX: D61.818 Other pancytopenia (principal); F10.239 Alcohol dependence with withdrawal, unspecified; E87.2 Acidosis; E87.1 Hypo-osmolality and hyponatremia; N17.9 Acute kidney failure, unspecified; I10 Essential (primary) hypertension; E83.42 Hypomagnesemia; E86.0 Dehydration; K70.10 Alcoholic hepatitis without ascites; J44.9 Chronic obstructive pulmonary disease, unspecified; K21.9 Gastro-esophageal reflux disease without esophagitis; F17.200 Nicotine dependence, unspecified, uncomplicated; F32.9 Major depressive disorder, single episode, unspecified; Z87.11 Personal history of peptic ulcer disease; Z20.822 Contact with and (suspected) exposure to COVID-19
CPT/HCPCS: J2060; J3420; J3475; P9016; S0164

== ENCOUNTER 2021-05-16 11:21 | Emergency (ER) | payer OTHER ==
[~2021-05-16] VITALS: Ht 165.1 cm; Wt 46.0 kg
[~2021-05-16 11:21] MED LIST changes: +BUPROPION HCL150 M2 PO; +FOLIC ACID1 M1 PO; +LIBRIUM25 MG PO; +MAGNESIUM OXID400 M1 PO; +VITAMIN B-121000 MCG PO
[2021-05-16 13:48] LABS: AMYLASE 49 u/l (30-110); BUN 34 mg/dL (9-20); BUN/CREATININE RATIO 43 (12-20 (CALC)); CARBON DIOXIDE 30 mmol/l (22-30); CPK 211 u/l (52-200); CREATININE 0.8 mg/dL (0.7-1.3); ETHYL ALCOHOL 0 mg/dl (0-30); GFR > 60 ML/MIN (>=60 (CALC)); GFR FOR AFR.AMER. > 60 ML/MIN (>=60 (CALC)); INTERNATIONAL NORMALIZED RATIO 1.1 RATIO (0.7-1.3); LIPASE 258 u/l (23-300); MAGNESIUM 1.8 mg/dL (1.6-2.3); POTASSIUM 3.3 mmol/l (3.5-5.1); PROTHROMBIN TIME 11.1 SECONDS (9.0-12.5); SGOT/AST 290 u/l (17-59); SODIUM 136 mmol/l (137-146)
[2021-05-16 13:55] LABS: ALBUMIN 4.1 g/dL (3.2-5.0); ALKALINE PHOSPHATASE 180 u/l (38-126); ANION GAP 18 (6-22 (CALC)); BILIRUBIN, TOTAL 1.9 mg/dL (0.0-1.4); CHLORIDE 91 mmol/l (95-108); TOTAL PROTEIN 6.7 g/dL (6.3-8.2)
[2021-05-16 13:59] LABS: HEMATOCRIT 25.2 % (39.0-50.0); HEMOGLOBIN 8.5 g/dl (14.0-18.0); IMMATURE GRANULOCYTES 0.3 % (0.0-5.0); MEAN CORPUSCULAR HGB 29.9 pG CALC (26.0-32.0); MEAN CORPUSCULAR HGB CONC 33.7 g/dL CAL (32.0-36.0); NEUT# 2.72 thou/uL (1.82-7.42); RED BLOOD COUNT 2.84 mill/uL (4.70-6.10); RED CELL DISTRI WIDTH 15.6 % (11.5-15.5)
[2021-05-16 14:01] LABS: ACT PARTIAL THROMBO TIME 14.9 SECONDS (20.0-32.5)
[2021-05-16 14:17] LABS: MEAN CELL VOLUME 88.7 fL CALC (80.0-100.0)
[2021-05-16 15:34] LABS: URINE BLOOD DIPSTICK NEGATIVE (NEGATIVE); URINE GLUCOSE - DIPSTICK NEGATIVE (NEGATIVE); URINE KETONE 40 mg/dL (NEGATIVE); URINE LEUK ESTERASE NEGATIVE (NEGATIVE); URINE PH 6.5 (4.5-8.0); URINE PROTEIN - DIPSTICK TRACE mg/dL (NEG-TRACE)
[2021-05-16 15:37] LABS: URINE BILIRUBIN - DIPSTICK MODERATE (NEGATIVE); URINE COLOR DK. YELLOW; URINE NITRITE - DIPSTICK NEGATIVE (Negative)
[2021-05-16 17:59] VITALS: BP 111/63
== END 2021-05-16 17:57 | disposition short-term general hospital (02) | DRG 378 ==
LOC: ED 11:21
PROC: 30233N1 Transfusion of Nonautologous Red Blood Cells into Peripheral Vein, Percutaneous Approach (ICD-10-PCS; principal; 2021-05-16)
DX: K92.2 Gastrointestinal hemorrhage, unspecified (principal); D61.818 Other pancytopenia; J98.2 Interstitial emphysema; K70.10 Alcoholic hepatitis without ascites; F10.10 Alcohol abuse, uncomplicated; S80.02XA Contusion of left knee, initial encounter; S80.01XA Contusion of right knee, initial encounter; S20.224A Contusion of middle back wall of thorax, initial encounter; I10 Essential (primary) hypertension; J44.9 Chronic obstructive pulmonary disease, unspecified; K21.9 Gastro-esophageal reflux disease without esophagitis; F17.200 Nicotine dependence, unspecified, uncomplicated; W19.XXXA Unspecified fall, initial encounter; Y92.009 Unspecified place in unspecified non-institutional (private) residence as the place of occurrence of the external cause; Z87.11 Personal history of peptic ulcer disease; Z20.822 Contact with and (suspected) exposure to COVID-19
CPT/HCPCS: P9016; Q9967; S0164

== ENCOUNTER 2021-06-15 17:38 | Emergency (ER) | payer OTHER ==
[~2021-06-15] VITALS: Ht 165.1 cm; Wt 65.0 kg
[2021-06-15 18:31] LABS: HEMOGLOBIN 8.1 g/dl (14.0-18.0); IMMATURE GRANULOCYTES 0.9 % (0.0-5.0); MEAN CELL VOLUME 89.8 fL CALC (80.0-100.0); MEAN CORPUSCULAR HGB 31.6 pG CALC (26.0-32.0); MEAN CORPUSCULAR HGB CONC 35.2 g/dL CAL (32.0-36.0); NEUT# 2.21 thou/uL (1.82-7.42); RED BLOOD COUNT 2.56 mill/uL (4.70-6.10); RED CELL DISTRI WIDTH 17.6 % (11.5-15.5)
[2021-06-15 18:39] LABS: ALBUMIN 4.1 g/dL (3.2-5.0); ALKALINE PHOSPHATASE 153 u/l (38-126); ANION GAP 21 (6-22 (CALC)); BILIRUBIN, TOTAL 2.1 mg/dL (0.0-1.4); BUN 25 mg/dL (9-20); BUN/CREATININE RATIO 43 (12-20 (CALC)); CHLORIDE 93 mmol/l (95-108); CREATININE 0.6 mg/dL (0.7-1.3); GFR > 60 ML/MIN (>=60 (CALC)); GFR FOR AFR.AMER. > 60 ML/MIN (>=60 (CALC)); LIPASE 32 u/l (23-300); SGOT/AST 120 u/l (17-59); SODIUM 130 mmol/l (137-146); TOTAL PROTEIN 7.1 g/dL (6.3-8.2)
[2021-06-15 18:47] LABS: CARBON DIOXIDE 19 mmol/l (22-30)
[2021-06-15 20:02] LABS: ACT PARTIAL THROMBO TIME 20.2 SECONDS (20.0-32.5); PROTHROMBIN TIME 10.2 SECONDS (9.0-12.5)
[2021-06-15 22:13] LABS: URINE BLOOD DIPSTICK NEGATIVE (NEGATIVE); URINE COLOR YELLOW; URINE GLUCOSE - DIPSTICK NEGATIVE (NEGATIVE); URINE KETONE 40 mg/dL (NEGATIVE); URINE LEUK ESTERASE NEGATIVE (NEGATIVE); URINE PH 6.5 (4.5-8.0); URINE PROTEIN - DIPSTICK 30 mg/dL (NEG-TRACE)
[2021-06-15 22:21] LABS: URINE NITRITE - DIPSTICK NEGATIVE (Negative)
[2021-06-15 22:23] LABS: URINE BILIRUBIN - DIPSTICK NEGATIVE (NEGATIVE)
[2021-06-15 22:33] LABS: URINE AMORPH SEDIMENT MANY hpf (NONE-FER); URINE RBC 0-2 RBC/hpf (0-5); URINE WBC 0-2 WBC/hpf (0-5)
[2021-06-15 23:53] VITALS: BP 120/67
== END 2021-06-16 07:50 | disposition home or self-care (01) | DRG 810 ==
LOC: ED 17:38
PROVIDERS: Family Medicine
DX: D61.818 Other pancytopenia (principal); F10.10 Alcohol abuse, uncomplicated; I10 Essential (primary) hypertension; J44.9 Chronic obstructive pulmonary disease, unspecified; K21.9 Gastro-esophageal reflux disease without esophagitis; F17.200 Nicotine dependence, unspecified, uncomplicated; Z87.11 Personal history of peptic ulcer disease
CPT/HCPCS: Q9967